=== PATIENT | male | born 1975 | race Caucasian/White ===

== ENCOUNTER 2017-04-28 21:49 | Emergency (ER) | payer SELFPAY ==
[~2017-04-28] VITALS: Ht 176.5 cm; Wt 109.2 kg
[2017-04-28 21:50] VITALS: TEMP 36.4; Ht 176.5 cm; Wt 109.2 kg
[2017-04-28] MEDS ORDERED: ONDANSETRON INJ 2 MG/ML 2 ML VIAL IV STA (22:03)
[2017-04-28] MEDS ORDERED: SODIUM CHLORIDE 0.9% 1000ML 1,000 ML IV STA ×2 (22:03)
[2017-04-28] MEDS ORDERED: MoRPHine SULFATE 4 MG/ML 1 ML CARP\\VIAL IV STA ×2 (22:03→23:22)
[2017-04-28] MEDS ORDERED: IBUP-103 PO (22:27)
[2017-04-28 22:53] VITALS: O2SAT 96
[2017-04-28 22:54] LABS: BASO % 0.4 %; BASO ABS # 0.04 K/uL (0-0.2); COMPLETE YES; EOS % 4.3 %; HEMATOCRIT 47.3 % (42-52); IG% 0.3 %; LYMPH % 32.9 %; LYMPH ABS # 3.55 K/uL (1.2-3.4); MEAN CELL VOLUME 89.8 fL (80-100); MEAN CORPUSCULAR HEMOGLOBIN 31.7 pg (25-34); MEAN CORPUSCULAR HGB CONC 35.3 g/dl (32-36); MEAN PLATELET VOLUME 10.2 fL (7.4-10.4); MONO % 6.7 %; NEUT % 55.4 %; PLATELET COUNT 217 K/uL (130-400); RED BLOOD COUNT 5.27 M/uL (4.7-6.1); WHITE BLOOD COUNT 10.78 K/uL (4.8-10.8)
[2017-04-28 23:10] LABS: URINE APPEARANCE CLEAR (CLEAR); URINE BILIRUBIN NEG (NEG); URINE COLOR YELLOW; URINE NITRITE NEG (NEG); UROBILINOGEN NEG (NEG); ZZUR CULT IF INDIC CLEAN CATCH NO
[2017-04-28 23:12] LABS: ALT/SGPT 35 U/L (12-78); BLOOD UREA NITROGEN 18 mg/dl (7-18); BUN/CREATININE RATIO 18.6 (10-20); CALCIUM 8.8 mg/dl (8.5-10.1); CARBON DIOXIDE 24 mmol/L (21-32); CHLORIDE 108 mmol/L (98-107); CREATININE 0.98 mg/dl (0.60-1.40); GLUCOSE 122 mg/dl (70-99); POTASSIUM 3.9 mmol/L (3.5-5.1); SODIUM 141 mmol/L (136-145)
[2017-04-28 23:15] LABS: ALKALINE PHOSPHATASE 108 U/L (45-117); AST/SGOT 19 U/L (15-37)
[2017-04-28 23:28] LABS: MANUAL MICROSCOPIC REQUIRED? NO; REVIEW REQ? NO
[2017-04-29] MEDS ORDERED: OPTIRAY 320 IV PRN (00:15)
[2017-04-29] MEDS ORDERED: OXYCODONE IR HOME PACK PO ONE (01:15)
[2017-04-29] MEDS ORDERED: ONDANSETRON HOME PACK 4MG OD TAB PO ONE (01:15)
[2017-04-29 01:35] VITALS: BP 139/90; PULSE 72; O2SAT 96
--- NOTE | 2017-04-29 01:50 | EMERGENCY ROOM VISIT NOTE ---
History First contact with patient: 21:55 Chief Complaint: ABDOMINAL PAIN Stated Complaint: RLQ PAIN Nursing Triage Summary: Pt states he was working outside this evening when he developed mid abdominal pain that comes in waves. History of Present Illness The patient is a 41 year old male who presents to the Emergency Room with complaints of right lower quadrant pain that comes and goes in severity for the past several hours. Pain currently 6 out of 10. Nothing makes it better or worse. It does not radiate. Patient denies chest pain, dyspnea, fever, chills , vomiting, diarrhea, back pain, testicular pain, penile pain, urinary symptoms. No history of similar symptoms in the past. No colonoscopy. No prior abdominal surgeries. Review of Systems See HPI for pertinent positives & negatives. A total of 10 systems reviewed and were otherwise negative. Past Medical/Surgical History None Family History No significant family history Social History Smoking Status: Current Every Day Smoker Alcohol Use: occasionally Drug Use: none Marital Status: in relationship Housing Status: lives with significant other Occupation Status: employed Current/Historical Medications Scheduled PRN Ibuprofen Tab (Advil), 400-600 MG PO Q6H PRN for Pain or Fever Allergies Coded Allergies: No Known Allergies (Unverified , 05/27/14) Physical Exam Vital Signs Date Time Temp Pulse Resp B/P (MAP) Pulse Ox O2 Delivery O2 Flow Rate FiO2 04/29/17 01:35 72 18 139/90 96 04/29/17 00:09 81 18 144/95 95 Room Air 04/28/17 22:56 85 04/28/17 22:53 96 Room Air 04/28/17 21:50 36.4 93 20 166/112 97 Room Air Pain Rating (0-10): 3.0 Physical Exam VITALS: Vitals are noted on the nurse's note and reviewed by myself. Vital signs stable. GENERAL: Pleasant male pacing who appears in pain, in no acute distress, nondiaphoretic, well-developed well-nourished. SKIN: The skin was without rashes, erythema, edema, or bruising. There is no tenting of the skin. Capillary reflex less than 2 seconds. HEAD: Normocephalic atraumatic. EARS: External auditory canals clear, tympanic membranes pearly littlejohn without erythema or effusion bilaterally. EYES: Pupils equal round and reactive to light and accommodation. Conjunctivae without injection, sclerae without icterus. Extraocular movements intact. NOSE: Patent, turbinates without inflammation or discharge. MOUTH: Mucous membranes moist. Pharynx without erythema or exudate. Uvula midline. Airway patent. Tongue does not deviate. NECK: Supple without nuchal rigidity. No lymphadenopathy. No thyromegaly. Cervical spine is nontender. No JVD. HEART: Regular rate and rhythm without murmurs gallops or rubs. LUNGS: Clear to auscultation bilaterally without wheezes, rales or rhonchi. No dullness to percussion. No retractions or accessory muscle use. ABDOMEN: Positive bowel sounds x 4. Normal tympanic percussion. Soft, tender to palpation right lower quadrant, no CVA tenderness, without masses or organomegaly. Lowery sign negative. No guarding or rebound tenderness. MUSCULOSKELETAL: No muscle atrophy, erythema, or edema noted. NEURO: Patient was alert and oriented to person place and time. Normal sensation to light and sharp touch. No focal neurological deficits. Medical Decision & Procedures Laboratory Results 04/28/17 22:35 Red Blood Count 5.27, Mean Corpuscular Volume 89.8, Mean Corpuscular Hemoglobin 31.7, Mean Corpuscular Hemoglobin Concent 35.3, Mean Platelet Volume 10.2, Neutrophils (%) (Auto) 55.4, Lymphocytes (%) (Auto) 32.9, Monocytes (%) (Auto) 6.7, Eosinophils (%) (Auto) 4.3, Basophils (%) (Auto) 0.4, Neutrophils # (Auto) 5.98, Lymphocytes # (Auto) 3.55, Monocytes # (Auto) 0.72, Eosinophils # (Auto) 0.46, Basophils # (Auto) 0.04 04/28/17 22:35 Test 04/28/17 22:30 04/28/17 22:35 Urine Color YELLOW Urine Appearance CLEAR (CLEAR) Urine pH 5.0 (4.5-7.5) Urine Specific [place] 1.030 (1.000-1.030) Urine Protein NEG (NEG) Urine Glucose (UA) NEG (NEG) Urine Ketones TRACE (NEG) Urine Occult Blood NEG (NEG) Urine Nitrite NEG (NEG) Urine Bilirubin NEG (NEG) Urine Urobilinogen NEG (NEG) Urine Leukocyte Esterase NEG (NEG) White Blood Count 10.78 K/uL (4.8-10.8) Red Blood Count 5.27 M/uL (4.7-6.1) Hemoglobin 16.7 g/dL (14.0-18.0) Hematocrit 47.3 % (42-52) Mean Corpuscular Volume 89.8 fL (80-100) Mean Corpuscular Hemoglobin 31.7 pg (25-34) Mean Corpuscular Hemoglobin Concent 35.3 g/dl (32-36) Platelet Count 217 K/uL (130-400) Mean Platelet Volume 10.2 fL (7.4-10.4) Neutrophils (%) (Auto) 55.4 % Lymphocytes (%) (Auto) 32.9 % Monocytes (%) (Auto) 6.7 % Eosinophils (%) (Auto) 4.3 % Basophils (%) (Auto) 0.4 % Neutrophils # (Auto) 5.98 K/uL (1.4-6.5) Lymphocytes # (Auto) 3.55 K/uL (1.2-3.4) Monocytes # (Auto) 0.72 K/uL (0.11-0.59) Eosinophils # (Auto) 0.46 K/uL (0-0.5) Basophils # (Auto) 0.04 K/uL (0-0.2) RDW Standard Deviation 43.0 fL (36.4-46.3) RDW Coefficient of Variation 13.1 % (11.5-14.5) Immature Granulocyte % (Auto) 0.3 % Immature Granulocyte # (Auto) 0.03 K/uL (0.00-0.02) Anion Gap 9.0 mmol/L (3-11) Est Creatinine Clear Calc Drug Dose 121.7 ml/min Estimated GFR () 110.5 Estimated GFR (Non- 95.4 BUN/Creatinine Ratio 18.6 (10-20) Calcium Level 8.8 mg/dl (8.5-10.1) Total Bilirubin 0.3 mg/dl (0.2-1) Direct Bilirubin < 0.1 mg/dl (0-0.2) Aspartate Amino Transf (AST/SGOT) 19 U/L (15-37) Alanine Aminotransferase (ALT/SGPT) 35 U/L (12-78) Alkaline Phosphatase 108 U/L (45-117) Total Protein 7.4 gm/dl (6.4-8.2) Albumin 3.9 gm/dl (3.4-5.0) Lipase 133 U/L (73-393) Medications Administered Medications (Trade) Dose Ordered Sig/Carmelo Route Start Time Stop Time Status Last Admin Dose Admin Sodium Chloride 1,000 ml @ 999 mls/hr Q1H1M STAT IV 04/28/17 22:03 04/28/17 23:03 DC 04/28/17 22:03 999 MLS/HR Sodium Chloride 1,000 ml @ 125 mls/hr Q8H STAT IV 04/28/17 22:03 04/29/17 06:02 04/28/17 22:03 125 MLS/HR Ondansetron HCl (Zofran Inj) 4 mg NOW STAT IV 04/28/17 22:03 04/28/17 22:07 DC 04/28/17 22:45 4 MG Morphine Sulfate (MoRPHine SULFATE INJ) 4 mg NOW STAT IV 04/28/17 22:03 04/28/17 22:07 DC 04/28/17 22:45 4 MG Morphine Sulfate (MoRPHine SULFATE INJ) 4 mg NOW STAT IV 04/28/17 23:22 04/28/17 23:23 DC 04/28/17 23:41 4 MG Oxycodone HCl (Roxicodone Immediate Rel 5MG Home Pack) 1 homepack UD ONCE PO 04/29/17 01:15 04/29/17 01:16 DC 04/29/17 01:29 1 HOMEPACK Ondansetron HCl (ZOFRAN ODT 4MG Home Pack) 1 homepack UD ONCE PO 04/29/17 01:15 04/29/17 01:16 DC 04/29/17 01:29 1 HOMEPACK ED Course Prior records/ancillary studies reviewed. Triage Nursing notes reviewed. Additional history obtained from family The patient's history was concerning for abdominal pain. Differential diagnosis: Etiologies such as appendicitis, diverticulitis, PUD, biliary pathology, UTI, pancreatitis, obstruction, mesenteric ischemia, aortic pathology, infections, inflammatory bowel disease, renal colic, as well as others were entertained. Physical examination findings: As above. ER treatment provided: Morphine, Zofran, IV fluids On reassessment the patient felt better. Diagnostics interpreted by me: The labs revealed no leukocytosis. Negative urine Imaging studies: CT the abdomen and pelvis negative for acute findings per stat radiology Exam and history seem consistent with abdominal pain with unclear etiology. Patient could've passed a kidney stone or this could be early shingles or this could be a muscular pull. Patient was advised follow-up family care in a few days or here in the ER sooner for abdominal pain, fevers, vomiting, worsening signs or symptoms or as needed. Patient felt much better. He did not have acute and then on exam. He was tolerating fluids. By the evaluation outlined above emergent etiologies such as appendicitis, diverticulitis, PUD, biliary pathology, UTI, pancreatitis, obstruction, mesenteric ischemia, aortic pathology, infections, inflammatory bowel disease, renal colic, as well as others were deemed relatively unlikely. The pt informed about the findings as listed above. All questions were answered and pleased with the treatment. Return instructions were outlined and the patient was discharged in stable condition. Referral: The patient was referred back to their primary care physician for follow-up in 2 to 3 days for a recheck of the current condition. Case reviewed with my attending Medical Decision As above Impression Primary Impression: Abdominal pain, right lower quadrant Departure Information Dispostion Home / Self-Care Condition GOOD Forms Call Back Authorization, HOME CARE DOCUMENTATION FORM, Work Instructions, Return To Work: 1 day IMPORTANT VISIT INFORMATION Patient Instructions Abdominal Pain, My [facility] Additional Instructions DO NOT drive, drink alcohol, operate machinery, or perform dangerous activities today. You were given medications in the ER that can affect your ability to safely function or operate a vehicle. Oxycodone (OxyIR) 5mg: Take 1-2 pills every four hours for breakthrough pain. Avoid alcohol, operating machinery or dangerous equipment, working on ladders or roofs, DRIVING, or situations where being under the influence may be dangerous. It is recommended to use an [id number] stool softener such as Colace, 100mg twice daily while taking this medication to avoid constipation. Ibuprofen(Motrin, Advil) may be used for fever or pain. Use 600mg every six hours as needed. Take with food. Avoid using more than 2400mg in a 24 hour period. Do not use 2400mg per day for more than three consecutive days without physician direction. Prolonged inappropriate use can lead to stomach upset or ulcers. (AND/OR) Acetaminophen(Tylenol) may be used for fever or pain. Use 1000mg every six hours as needed. Avoid using more than 4000mg in a 24 hour period. Zofran 4mg: Take one every six hours as needed for nausea. Avoid alcohol, operating machinery or dangerous equipment, working on ladders or roofs, DRIVING , or situations where being under the influence may be dangerous. Rest and drink plenty of fluids as tolerated. Slow sips of water or sports drinks are recommended instead of large amounts all at once. Continue current medications. Once your stomach is settled start with a clear liquid diet (jello, soup broth, etc.) and then advance as tolerated. You should avoid full, heavy meals for about 24 hrs from the time your symptoms resolved. Return to the ER immediately for worsening or persistent abdominal pain, vomiting, fevers, chest pains, difficulty breathing, black or bloody stools, worsening of your condition, or as needed. Follow up with your primary physician in 24 hours for a recheck of your current condition. You may receive diarrhea from the contrast. Work Instructions Return To Work: 1 day
--- NOTE | 2017-04-29 08:16 | DIAGNOSTIC IMAGING REPORT ---
CT SCAN OF THE ABDOMEN AND PELVIS WITH IV CONTRAST CLINICAL HISTORY: Right lower quadrant abdominal pain. COMPARISON STUDY: No priors. TECHNIQUE: Following the IV administration of 92 cc of Optiray 320, CT scan of the abdomen and pelvis is performed from the lung bases to the proximal femora. Images are reviewed in the axial, sagittal, and coronal planes. IV contrast was administered without complication. Automated dose control exposure was utilized. CT DOSE: 1160.14 mGy.cm FINDINGS: Lung bases: The heart is normal in size and without pericardial effusion. The lung bases are clear noting dependent atelectasis. There is a small hiatal hernia. Liver: The contrast-enhanced liver is enlarged, measuring 19.1 cm in length. The liver demonstrates diffusely diminished attenuation consistent with hepatic steatosis. Fatty sparing is seen adjacent to gallbladder fossa. There is no intrahepatic biliary ductal dilatation. The hepatic veins and portal veins are patent. Gallbladder: Unremarkable. Spleen: Normal in size and attenuation. Pancreas: Unremarkable. Adrenal glands: Unremarkable. Kidneys: The contrast enhanced kidneys are normal in size and without hydronephrosis. The kidneys enhance symmetrically. Abdominal vasculature: The abdominal aorta is normal in course and caliber noting mild to moderate and age advanced atherosclerotic calcification. Bowel: There is no bowel obstruction. There is mild wall thickening and hyperemia is suggested in the distal/terminal ileum. This is best seen on image #281. No surrounding inflammatory changes identified. The remaining small bowel loops are normal. The appendix is well-visualized and normal. Peritoneum: There is no intraperitoneal free air or abdominal ascites. There is a fat-containing umbilical hernia. Lymphadenopathy: None. Pelvic viscera: The bladder, prostate, and seminal vesicles are normal as visualized.. Surgical clips are noted along the spermatic cord bilaterally. Skeletal structures: No lytic or blastic lesions are seen. IMPRESSION: 1. The appendix is well-visualized and normal. 2. Question mild wall thickening and hyperemia of the distal/terminal ileum. There is no surrounding inflammatory change in the remainder of the small bowel loops are normal. This is of indeterminate significance, and a mild infectious/inflammatory distal/terminal ileitis is not excluded clinical correlation will be required. 3. Hepatomegaly and hepatic steatosis. 4. There is mild to moderate and age advanced atherosclerotic calcification of the abdominal aorta. Electronically signed by: Kimani Smith M.D. 04/29/2017 8:14 AM Dictated Date/Time: 04/29/2017 8:08 AM
== END 2017-04-29 01:37 | disposition home or self-care (01) ==
LOC: C.EDB 21:50
DX: R10.31 Right lower quadrant pain (principal); F17.200 Nicotine dependence, unspecified, uncomplicated

== ENCOUNTER 2023-09-16 05:54 | Observation (INO) ==
--- NOTE | 2023-08-25 14:00 | PAT Medication Instructions ---
Medication Instructions Date of Service August 25, 2023 Home Medications Ibuprofen Tab (ADVIL) 400 - 600 mg PO Q6H PRN Pain or Fever atorvastatin 20 mg tablet 20 mg PO PM cyclobenzaprine 10 mg tablet 10 mg PO QPM garlic 1,000 mg PO QAM hydrochlorothiazide 25 mg tablet 25 mg PO QAM losartan 50 mg tablet 50 mg PO QAM meloxicam 15 mg tablet 15 mg PO QAM omega-3 fatty acids 1,000 mg PO QAM ASK your surgeon for instructions Ibuprofen Tab (ADVIL) 400 - 600 mg PO Q6H PRN Pain or Fever meloxicam 15 mg tablet 15 mg PO QAM STOP taking 2 weeks before surgery (or as soon as possible if surgery is within 2 weeks) garlic 1,000 mg PO QAM omega-3 fatty acids 1,000 mg PO QAM DO NOT take the morning of surgery hydrochlorothiazide 25 mg tablet 25 mg PO QAM losartan 50 mg tablet 50 mg PO QAM Take evening before surgery atorvastatin 20 mg tablet 20 mg PO PM cyclobenzaprine 10 mg tablet 10 mg PO QPM Other Notes If you have any questions please call us at [phone] or [phone] or [phone] or [phone]
--- NOTE | 2023-09-02 11:40 | Anesthesiology Consultation ---
Date of Service September 02, 2023 Assessment & Plan (1) Encounter for pre-operative examination: Chart Review Chart Review: Acceptable Risk for Surgery (pending PCP clearance ) and Patient seen in Pre Admission Testing - Awaiting PCP clearance 09/03/23 ([facility]) Per PAT appt on 09/02/23, no recent illness/disease exposures, illness related symptoms, or recent illness/disease positive tests. Will leave to surgeon's discretion if preop Covid testing needed Teaching & Discussion Pre-Anesthesia Teaching/Discussion Notes: Instructed NPO after midnight before surgery,except medications with 15 cc of water. Medication instructions provided according to the PAT guidelines. History Surgery Operation Date: 09/16/23 10:05 Proposed Procedures p C5-C6 Anterior Cervical Discectomy and Fusion, Spinal Cord Monitoring - Ad Will DO Height/Weight Height: 5 ft 9 in Weight: 106.9 kg Allergies Allergy/AdvReac Type Severity Reaction Status Date / Time No Known Allergies Allergy Unverified 08/22/23 13:20 Medications Home Medications Medication Instructions Recorded Confirmed Last Taken Ibuprofen Tab (ADVIL) 400 - 600 mg PO Q6H PRN Pain or 04/28/17 Unknown Fever #0 tabs atorvastatin 20 mg tablet 20 mg PO PM 08/22/23 08/22/23 Unknown cyclobenzaprine 10 mg tablet 10 mg PO QPM 08/22/23 08/22/23 Unknown garlic 1,000 mg PO QAM 08/22/23 08/22/23 Unknown hydrochlorothiazide 25 mg tablet 25 mg PO QAM 08/22/23 08/22/23 Unknown losartan 50 mg tablet 50 mg PO QAM 08/22/23 08/22/23 Unknown meloxicam 15 mg tablet 15 mg PO QAM 08/22/23 08/22/23 Unknown omega-3 fatty acids 1,000 mg PO QAM 08/22/23 08/22/23 Unknown Past Medical History Medical History HLD (hyperlipidemia) HTN (hypertension) Osteoarthritis Scoliosis Exercise / Class Metabolic Activity II 4-5 Yardwork/Stairs/Walk up hill (one flight of stairs - no chest pain or SOB ) Past Surgical History Surgical History History of oral surgery History of vasectomy History of wisdom tooth extraction Past Anesthesia History No Hx of Anesthesia Complications and No Family Hx of Anesthesia Complications History of PONV No Hx of PONV and No Hx of Motion Sickness STOP BANG Total 3 Social History Smoking Status: Current every day smoker Smoking cigarettes per day: trying to quit Do You Dip or Chew Tobacco: No Hx Alcohol Use: Yes Alcohol type: beer alcohol intake frequency: a few times a week Alcohol Intake Frequency Comment: 6 packs friday/fri night Hx Substance Use: No substance use type: does not use Review of Systems - Reflux- occ- diet dependent- mild- no medication if needed Patient denies chest pain, shortness of breath, dyspnea on exertion, cough, wheezing, palpitations. No hx of seizures, stroke, GA, apnea/snoring. No hx of blood clots or blood transfusions Physical Exam Vital Signs VITALS BP 129/87 P 72 TEMP 97.7 SP02 95% RESP 16 Constitutional no acute distress ENMT Mouth: no TMJ clicking Thyromental Distance: > or= 3.5 Finger Breadths (3.5) Mallampati Class: I (smaller airway ) Missing molars Neck + limited neck extension (mild) Respiratory normal respiratory effort; no respiratory distress Auscultation: lungs clear to auscultation bilaterally; no wheezes Cardiovascular Rate/Rhythm: regular rate and regular rhythm Heart Sounds: no murmur Vessels: no carotid bruit Musculoskeletal Spine: + pain with cervical ROM (minimal) Extremities: extremities normal to inspection Psychiatric Orientation: alert Lab Results Anesthesia Preop Results Results Anesthesia Widget: WBC 11.90 K/ul (4.8-10.8) H 09/02/23 Hgb 17.4 g/dl (14.0-18.0) 09/02/23 Hct 48.9 % (42.0-52.0) 09/02/23 Plt 215 K/uL (130-400) 09/02/23 Na 137 mmol/L (136-145) 09/02/23 K 4.4 mmol/L (3.5-5.1) 09/02/23 Cl 102 mmol/L (98-107) 09/02/23 CO2 28 mmol/L (21-32) 09/02/23 BUN 13 mg/dl (6-23) 09/02/23 Creat 0.92 mg/dl (0.6-1.4) 09/02/23 Glucose Level 116 mg/dl (70-99(Fasting)) H 09/02/23 PT 10.8 Seconds (9.0-12.0) 09/02/23 PTT 32.0 Seconds (21.0-31.0) H 09/02/23 INR 1.0 (0.9-1.1) 09/02/23 Urine Color Yellow 09/02/23 Urine Appearance Clear (Clear) 09/02/23 Urine pH 5.5 (4.5-7.5) 09/02/23 Urine Specific [place] 1.007 (1.000-1.030) 09/02/23 Urine Protein Negative (Negative) 09/02/23 Urine Glucose (UA) Negative (Negative) 09/02/23 Urine Ketones Negative (Negative) 09/02/23 Urine Blood Negative (Negative) 09/02/23 Urine Nitrite Negative (Negative) 09/02/23 Urine Bilirubin Negative (Negative) 09/02/23 Urine Urobilinogen Negative (Negative) 09/02/23 Urine Leukocyte Esterase Negative (Negative) 09/02/23 Blood Type A Positive 09/02/23 Antibody Screen NEGATIVE 09/02/23 Testing Electrocardiogram Date: 05/08/23 Findings: + NSR @ (64bpm) Normal EKG per cardio Chest X-Ray Date: 09/02/23 Findings: + NAD FINDINGS: PA and lateral chest radiographs are obtained. No prior studies are available for comparison at the time of dictation. The cardiomediastinal silhouette is unremarkable. The lungs and pleural spaces are clear. There is no pneumothorax. The bony thorax appears intact.
[2023-09-16] MEDS ORDERED: ceFAZolin 2000MG 2,000 MG/15 ML SYR IV SCH (06:00)
[2023-09-16] MEDS ORDERED: CeleBREX 200 MG CAP PO SCH (06:00)
[2023-09-16] MEDS ORDERED: GABAPENTIN 900 MG DOSE PO SCH (06:00)
[2023-09-16] MEDS ORDERED: LR 60ML/HR IV SCH (06:00)
[2023-09-16] MEDS ORDERED: ACETAMINOPHEN 500 MG TAB PO SCH (06:00)
[2023-09-16] MEDS ORDERED: LR 15ML/HR IV SCH (06:00)
[2023-09-16] MEDS ORDERED: ceFAZolin 330 MG/ML 1 GM VIAL ONE (07:04)
[2023-09-16] MEDS ORDERED: ROCURONIUM BROMIDE 10 MG/ML 5 ML VIAL IV ONE ×2 (07:12→08:34)
[2023-09-16] MEDS ORDERED: PROPOFOL IV EMULSION 10 MG/ML 20 ML VIAL IV ONE (07:12)
[2023-09-16] MEDS ORDERED: LIDOCAINE 2% 2 ML VIAL/AMP(20MG/ML) INFIL ONE (07:12)
[2023-09-16] MEDS ORDERED: ONDANSETRON INJ 2 MG/ML 2 ML VIAL ONE (07:12)
[2023-09-16] MEDS ORDERED: DEXAMETHASONE SOD INJ 4 MG/ML VIAL ONE (07:12)
[2023-09-16] MEDS ORDERED: MIDAZOLAM HCL 1 MG/ML 2ML VIAL ONE (07:13)
[2023-09-16] MEDS ORDERED: SUGAMMADEX SODIUM 200 MG/2 ML VIAL IV ONE (07:13)
[2023-09-16] MEDS ORDERED: fentaNYL citrate PF 100 MCG/2 ML VIAL ONE (07:13)
[2023-09-16] MEDS ORDERED: NALOXONE HCL 0.4 MG/1 ML VIAL/CARP IV PRN ×2 (07:15→11:07)
[2023-09-16] MEDS ORDERED: FLUMAZENIL 0.1 MG/1 ML 10 ML VIAL IV PRN (07:15)
[2023-09-16] MEDS ORDERED: ePHEDrine sulfate 50 MG/ML AMP IV PRN (07:15)
[2023-09-16] MEDS ORDERED: ATROPINE SULFATE 0.1 MG/ML 10ML SYR IV PRN (07:15)
[2023-09-16] MEDS ORDERED: ONDANSETRON INJ 2 MG/ML 2 ML VIAL IV PRN ×2 (07:15→11:07)
[2023-09-16] MEDS ORDERED: PROMETHAZINE HCL 12.5 MG in SODIUM CHLORIDE 0.9% 50 ML IV PRN ×2 (07:15→11:07)
[2023-09-16] MEDS ORDERED: HYDROmorphone INJ 1 MG/ML SYRINGE IV PRN ×2 (07:15→11:07)
[2023-09-16] MEDS ORDERED: LABETALOL HCL IV 5 MG/ML 20ML IV PRN (07:15)
--- NOTE | 2023-09-16 07:44 | History & Physical Bridge Note ---
Date of Service September 16, 2023 History & Physical Bridge Note I have examined the patient, reviewed the History & Physical and in the interval since the performance of the History & Physical I have noted the following changes of clinical significance: no changes noted
--- NOTE | 2023-09-16 07:45 | History & Physical Report ---
Date of Service September 16, 2023 Assessment & Plan (1) Cervical stenosis of spinal canal: Plan: C5-C6 anterior cervical discectomy and fusion History of Present Illness Chief Complaint: Neck and arm pain Primary Care Provider: Meenu Newton PA-C This is a 48-year-old male presents with chronic persistent neck and arm pain after failing course of nonoperative care is here for surgical invention. Allergies Allergy/AdvReac Type Severity Reaction Status Date / Time No Known Allergies Allergy Unverified 08/22/23 13:20 Home Medications Medication Instructions Recorded Confirmed Type Ibuprofen Tab (ADVIL) 400 - 600 mg PO Q6H PRN Pain or 04/28/17 09/16/23 History Fever #0 tabs atorvastatin 20 mg tablet 20 mg PO PM 08/22/23 09/16/23 History cyclobenzaprine 10 mg tablet 10 mg PO QPM 08/22/23 09/16/23 History garlic 1,000 mg PO QAM 08/22/23 09/16/23 History hydrochlorothiazide 25 mg tablet 25 mg PO QAM 08/22/23 09/16/23 History losartan 50 mg tablet 50 mg PO QAM 08/22/23 09/16/23 History meloxicam 15 mg tablet 15 mg PO QAM 08/22/23 09/16/23 History omega-3 fatty acids 1,000 mg PO QAM 08/22/23 09/16/23 History varenicline 0.5 mg tablet 0.5 mg PO DIRECTED 09/03/23 09/16/23 History empagliflozin 10 mg tablet 10 mg PO QAM 09/16/23 09/16/23 History (Jardiance) Past Med/Surg History Medical History (Updated 09/16/23 @ 07:45 by Ad Will DO) Diabetes Recently diagnosed by PCP 09/03/23 Scoliosis Osteoarthritis HLD (hyperlipidemia) HTN (hypertension) Surgical History History of oral surgery History of wisdom tooth extraction History of vasectomy Social History Smoking Status: Current every day smoker Tobacco Type: Cigarettes Cigarettes Per Day: trying to quit; Second Hand Exposure: No; Do You Dip or Chew Tobacco: No; Tobacco Cessation Education Requested by Patient: No Hx Alcohol Use: Yes Alcohol type: beer Hx Substance Use: No Preferred Language: Vietnamese Communication Ability: Effective Conservation Scientist Required: No Beliefs That Will Affect Care: None Current Living Situation: Family Feels Safe at Home: Yes Safety Concerns: Feels Safe At This Time Assistive Devices: Glasses Physical Exam Physical Exam: Patient is alert and oriented Heart regular rhythm Lungs clear Results & Data Results & Data Vital Signs (Past 12 Hours) Vital Signs Temp Pulse Resp BP Pulse Ox O2 Del Method 09/16/23 06:14 36.5 C 79 18 131/82 97 Room Air
--- NOTE | 2023-09-16 09:04 | Operative Report ---
Post Operative Report Pre & Post Diagnosis Operation Date: 09/16/23 07:45 Pre-Op Diagnosis: Cervical spinal stenosis with radiculopathy Post-Op Diagnosis: Same I identified the patient and participated in the time-out.: Yes Procedure Operation Date: 09/16/23 07:45 Actual Procedures #1 anterior cervical discectomy with bilateral foraminotomies C5-C6. #2 anterior cervical arthrodesis C5-C6. #3 placement spiral 8 mm cage with I factor C5-C6. #4 application of K2 M plate and screws C5-C6. Surgeon Ad Will, DO Medication Nurse Samira Ku Estimated Blood Loss 10 Findings See Below The patient is 5 foot 9 weighing over 103 kg with a BMI in excess of 33. Patient's body habitus did contribute to significant technical difficulty requiring her deeper retractors longer instruments in order to perform this procedure. This at least 50% increased operative time. Specimens None Indications This is a 48-year-old male who presents above-mentioned diagnosis of failed since course of nonoperative care is here for surgical invention. Description of Procedure Patient was met with identified informed consent obtained. Patient was then taken to the operative suite underwent patient placed in a supine position on the Víctor table with the head Severino gatica. All bony promises well-padded eyes inspected to ensure no external pressure placed upon the. This point the anterior cervical spine was prepped and draped in a sterile fashion. The assi stance of fluoroscopy identified the C5-C6 disc base and a transverse incision was placed along the right anterior aspect of the cervical spine overlying this region. Blunt dissection with assistance of bipolar electrocautery to form down to and exposing the anterior cervical spine C5-C6. Self-retaining retractors placed. Informed complete discectomy of C5-C6 out to the uncovertebral joints bilaterally. Montague distracting pins utilized to assist in visualization. Moved all posterior annular fibers longitudinal ligament bilateral foraminotomies performed. Endplates were then burred to subcortical bleeding bone and an 8 mm Spira cage with I factor tapped in position. Distracting apparatus was removed and a K2 M plate and screws applied with the assistance of fluoroscopy. The incision was then copiously irrigated explored to ensure no damage to surrounding structures or remaining bleeding. 10 round CYRUS drain inserted. The incision was then closed with 2 Vicryl in the fascia and 4 Monocryl for final closure. Steri-Strips sterile dressing placed. Patient waken taken to PACU in stable condition. Please note spinal cord monitoring was utilized at the procedure no changes noted. Lastly Samira Ku was present at the entire surgery and all the patient positioning complex portion of the surgery and final skin closure. I attest to the content of the Intraoperative Record and any orders documented therein. Any exceptions are noted below.
--- NOTE | 2023-09-16 09:21 | Fluoroscopy Report ---
FL cervical 2-3V CLINICAL HISTORY: C5-6 DISCECTOMY AND FUSION COMPARISON STUDY: Radiograph 07/20/2023 FLUOROSCOPY TIME: 18.3 seconds FLUOROSCOPY IMAGES: 3 EXPOSURE DOSE: 4.60 mGy FINDINGS: Anterior plate and screw fusion hardware secondary to C5-C6. Endotracheal tube and surgical drainage catheter is noted. Limited exam secondary to overlying soft tissue. No unexpected opaque fo reign bodies identified. No definitive or significant foraminal completion of the surgery. IMPRESSION: Fluoroscopic assistance as above. ACT 112: Negative or not required by law. Electronically signed by: Taj Freitas M.D. 09/16/2023 9:19 AM
[2023-09-16] MEDS: fentaNYL citrate PF 100 MCG/2 ML VIAL IV PRN ×2 (09:26→09:36)
--- NOTE | 2023-09-16 10:41 | Anesthesiology Progress Note ---
Date of Service September 16, 2023 Anesthesia Post Procedure Vital Signs Vital Signs: Temp Pulse Pulse Resp BP BP Pulse Ox 09/16/23 10:25 36.4 C L 77 18 152/96 H 92 09/16/23 10:15 74 16 150/99 H 95 09/16/23 10:05 71 17 147/97 H 94 09/16/23 09:55 74 16 153/97 H 94 09/16/23 09:45 69 13 133/97 94 09/16/23 09:35 72 17 142/100 H 94 09/16/23 09:25 71 17 136/96 97 09/16/23 09:16 36.6 C 70 18 144/92 H 97 09/16/23 06:14 36.5 C 79 18 131/82 97 O2 Del Method O2 Flow Rate 09/16/23 10:25 Nasal Cannula 2 09/16/23 10:15 Nasal Cannula 2 09/16/23 10:05 Nasal Cannula 2 09/16/23 09:55 Nasal Cannula 2 09/16/23 09:45 Oxymask 4 09/16/23 09:35 Oxymask 4 09/16/23 09:25 Oxymask 9 09/16/23 09:16 Oxymask 9 09/16/23 06:14 Room Air Pain Intensity Upper Back: Pain Intensity: 4 Neck: Pain Intensity: 4 Transfer of Care Handoff Completed per policy Notes Mental Status: alert / awake / arousable Patient Amnestic to Procedure: Yes Nausea / Vomiting: adequately controlled Pain: adequately controlled Airway Patency, RR, SpO2: stable & adequate BP & HR: stable & adequate Hydration State: stable & adequate Anesthetic Complications: no major complications apparent
[2023-09-16] MEDS ORDERED: ALUMINUM/MAGNESIUM SUSP 30 ML UDC PO PRN (11:07)
[2023-09-16] MEDS ORDERED: LORazepam 0.5 MG TAB PO PRN (11:07)
[2023-09-16] MEDS ORDERED: MAGNESIUM HYDROXIDE SUSP 30 ML UDC PO PRN (11:07)
[2023-09-16] MEDS ORDERED: LORazepam 0.5 MG in SYRINGE 0.25 ML IV PRN (11:07)
[2023-09-16] MEDS ORDERED: FAMOTIDINE 20 MG TAB PO PRN (11:07)
[2023-09-16] MEDS ORDERED: HYDROmorphone INJ 0.5 MG/0.5 ML SYR IV PRN (11:07)
[2023-09-16] MEDS ORDERED: hydrOXYzine HCl 25 MG TAB PO PRN (11:07)
[2023-09-16] MEDS ORDERED: DO NOT ADMINISTER PNEUMOCOCCAL VACCINE PRN (11:07)
[2023-09-16] MEDS ORDERED: ACETAMINOPHEN 500 MG TAB PO PRN (11:07)
[2023-09-16] MEDS ORDERED: ONDANSETRON 4 MG OD TAB PO PRN (11:07)
[2023-09-16] MEDS ORDERED: PHARMACY GLYCEMIC MGMT CONSULT PRN (11:07)
[2023-09-16] MEDS ORDERED: traMADol HCL 50 MG TABLET PO PRN (11:07)
[2023-09-16] MEDS ORDERED: RACEPINEPHRINE 2.25% NEBU SOLN 0.5 ML VIAL INH PRN (11:07)
[2023-09-16] MEDS ORDERED: METOCLOPRAMIDE HCL INJ 5 MG/ML 2 ML VIAL IV PRN (11:07)
[2023-09-16] MEDS ORDERED: DO NOT ADMINISTER FLU VACCINE PRN (11:07)
[2023-09-16] MEDS ORDERED: ACETAMINOPHEN 1,000 MG/100 ML VIAL IV PRN (11:07)
[2023-09-16] MEDS ORDERED: diphenhydrAMINE Capsule 25 MG CAP PO PRN (11:07)
[2023-09-16] MEDS ORDERED: bisacodyL 10 MG SUPP PR PRN (11:07)
[2023-09-16] MEDS ORDERED: SOD PHOSPHATE/SOD BIPHOSPHATE ENEMA 132 ML BTL PR PRN (11:07)
[2023-09-16] MEDS ORDERED: oxyCODONE HCL IR 5 MG TAB (IMMEDIATE RELEASE) PO PRN (11:07)
[2023-09-16] MEDS ORDERED: dexAMETHasone 8 MG in SYRINGE 0 ML IV PRN (11:07)
[2023-09-16] MEDS ORDERED: DEXTROSE 50% 50 ML SYRINGE IV PRN (11:30)
[2023-09-16] MEDS ORDERED: GLUCOSE 40% GEL 15 GM TUBE PO PRN (11:30)
[2023-09-16] MEDS ORDERED: CARBOHYDRATES FOR HYPOGLYCEMIA PO PRN (11:30)
[2023-09-16] MEDS ORDERED: GLUCAGON FOR INJ 1 MG VIAL IM PRN (11:30)
[2023-09-16] MEDS ORDERED: GLUCOSE 10 TAB/TUBE PO PRN (11:30)
[2023-09-16] MEDS: LACTATED RINGER'S 1,000 ML IV SCH ×2 (11:32→18:09)
[2023-09-16] MEDS: INSULIN ASPART PER UNIT CHARGE SC SCH ×3 (12:09→20:40)
--- NOTE | 2023-09-16 12:24 | Pharmacy Report ---
Pharmacy Glycemic Short Note 2 - Date of Service September 16, 2023 - Glycemic Short BSG Results (Last 24 hours): 09/16/23 09/16/23 09/16/23 06:14 09:18 11:35 POC Glucose 128 H 122 H 139 H OUTPATIENT ANTIDIABETIC REGIMEN: * Jardiance 10 mg daily (not yet started) * HbA1C ordered ASSESSMENT: * Mr Dunlap is a 48 y/o M with a PMH of newly diagnosed Type 2 DM who presents for spinal surgery. * Preop BSG was 128 and postop BSG was 139 mg/dL. Patient received dex 8 mg during surgery. * Since patient is relatively newly diagnosed, will trial NPH 20 units (0.2 units/kg) plus Novolog weight-based stress of 2/3. * Patient has ongoing dexamethasone orders so adjust accordingly. PLAN FOR INPATIENT GLYCEMIC CONTROL: * Hold outpatient oral diabetes medications * Basal insulin * NPH 20 units SQ x 1 with subsequent dosing determined by response * Bolus insulin * NovoLog per scale ACHS or Q6hrs while NPO * Goal Range: Low 110 mg/dL - High 140 mg/dL * Correction Factor: 25 mg/dL/unit * Nutritional / Prandial insulin per carb ratio of 1 unit per 6 grams CHO consumed
[2023-09-16] MEDS ORDERED: NovoLIN-N (NPH) PER UNIT CHARGE SQ ONE (12:30)
[2023-09-16] MEDS ORDERED: NICOTINE POLACRILEX 2 MG GUM MT PRN (14:04)
[2023-09-16] MEDS: ceFAZolin 2000MG 2,000 MG/15 ML SYR IV SCH ×2 (16:11→22:41)
[2023-09-16] MEDS ORDERED: DOCUSATE SODIUM/SENNA 50/8.6MG TAB PO SCH (21:00)
[2023-09-16] MEDS ORDERED: ATORVASTATIN 20 MG TAB PO SCH (21:00)
[2023-09-17] MEDS: LACTATED RINGER'S 1,000 ML IV SCH (01:16)
[2023-09-17] MEDS ORDERED: POLYETHYLENE (MIRALAX) 17 GM PACK PO SCH (06:00)
[2023-09-17 07:09] LABS: Basophils # (auto) 0.04 K/uL (0.00-0.20); Basophils % (auto) 0.3 %; Eosinophils % (auto) 0.7 %; Hematocrit (blood only) 42.7 % (42.0-52.0); Hemoglobin 15.5 g/dl (14.0-18.0); Immature Granulocytes # (auto) 0.06 K/uL (0.01-0.20); Immature Granulocytes % (auto) 0.4 %; Lymphocytes # (auto) 4.04 K/uL (1.20-3.40); Lymphocytes % (auto) 27.3 %; Mean Corpuscular Hemoglobin 31.6 pg (25.0-34.0); Mean Corpuscular Hgb Conc 36.3 g/dL (32.0-36.0); Mean Corpuscular Volume 87.1 fL (80.0-100.0); Mean Platelet Volume 10.9 fL (9.4-12.4); Monocytes # (auto) 0.98 K/uL (0.11-0.59); Monocytes % (auto) 6.6 %; Neutrophils # (auto) 9.58 K/uL (1.40-6.50); Neutrophils % (auto) 64.7 %; Platelet Count 201 K/uL (130-400); RDW Coefficient of Variation 12.6 % (11.5-14.5); RDW Standard Deviation 40.3 fL (36.4-46.3)
[2023-09-17 07:35] LABS: Estimated Average Glucose 146 mg/dl; Hemoglobin A1C 6.7 % (4.5-5.6)
[2023-09-17] MEDS: INSULIN ASPART PER UNIT CHARGE SC SCH (08:14)
--- NOTE | 2023-09-17 08:41 | Discharge Summary ---
Date of Service September 17, 2023 Admission HPI Per Admitting Provider This is a 48-year-old male presents with chronic persistent neck and arm pain after failing course of nonoperative care is here for surgical invention. Admission Exam (Per Admitting) Constitutional well nourished Eyes normal visual richards by confrontation ENMT external ear and nose normal, oropharynx normal Neck normal visual inspection Respiratory normal respiratory effort Cardiovascular Extremities: normal capillary refill Gastrointestinal (Abdomen) Inspection/Auscultation: abdomen normal to inspection Musculoskeletal Spine: + limited cervical ROM Extremities: extremities normal to inspection and strength 5/5 throughout Skin no rashes, warm and dry Neurologic normal touch/pain/proprioception and moves all extremities Psychiatric A+Ox3, euthymic affect Discharge Data Procedures Performed Operation Date: 09/16/23 07:45 Actual Procedures p C5-C6 Anterior Cervical Discectomy and Fusion with Spinal Cord Monitoring(Not Applicable) - Ad Will DO Hospital Course (1) Cervical stenosis of spinal canal: Eric is being discharged home on postoperative day 1 status post ACDF C5-6. He has had an uneventful hospital course. Upper extremity symptoms have resolved. He is tolerating a full diet. He is up and ambulatory to the [facility]. No bowel or bladder issues. CYRUS drain output last shift was 15 cc. Discharge Instructions ACTIVITY RECOMMENDATIONS: SELF CARE INSTRUCTIONS AFTER CERVICAL FUSIONS 1. No smoking. Smoking drastically decreases the chance of a solid fusion. 2. No bending, lifting more than 5 pounds, or twisting (roll like a log when turning in bed). 3. You may shower 3 days after surgery. Thoroughly dry wound. Do not soak in the tub. 4. Cervical collar: Must be worn at all times including sleeping. You may remove the brace only to bath, eat and if you are sitting in a recliner. 5. Please walk as much as you can for exercise. Gradually increase the distance that you walk as your endurance increases. SPECIAL CARE INSTRUCTIONS: VERY IMPORTANT TO READ AND REVIEW A. Do not take any anti-inflammatory medications (i.e. Indocin, Advil, Aspirin, Naprosyn, Aleve, Motrin, etc.) as these may inhibit the chance of a solid fusion. Tylenol is okay to take. B. Your surgical incision has been closed with a cosmetic suture under the skin that will dissolve in about 6 weeks. In 14 days, you can use a pair of clean scissors and cut the suture that is left outside of the skin at the ends of your incision. C. Complications are uncommon, but please contact us if you have any signs or symptoms of: 1. wound infection (fever higher than 102.5 degrees F, redness, separation of wound, drainage, or increasing pain from the incision) 2. blood clots in legs (pain, swelling, redness and warmth in legs) 3. urinary tract infection (fever higher than 102.5 degrees, burning upon urination or increased frequency of urination) 4. nerve problems (inability to walk on your toes or heels, numbness, loss of bowel or bladder control) 5. any other symptoms that concern you. D. Please call the office at if you have any concerns or questions about your operation or recovery. MANAGING PAIN AFTER SPINAL SURGERY 1. Narcotic medication is intended for short-term use and will be provided for surgical pain. Surgical pain usually lasts for a period of 4-6 weeks. Narcotic medication includes Percocet, Vicodin, Darvocet, Tylenol #3 or Lortab. 2. Longer-term pain is more appropriately treated with non-narcotic medication such as Tylenol ES. 3. Muscle spasm is not appropriately treated with narcotics. Muscle relaxers such as Soma, Flexeril or Skelaxin can be used along with Tylenol ES. 4. Remember that we all live with some "aches and pains". This is not unusual or uncommon after an injury or as we get older. 5. We will provide appropriate medication within the normal guidelines of their prescribed use. We will also be very cautious and aware of potential abuse and extended duration of patients' medication needs. 6. Please allow 2-3 days to process refills. Prescriptions will not be mailed but must be picked up at the office. FOLLOW UP VISIT: Keep your scheduled follow-up appointment. Any questions, please call the office at .
[2023-09-17 08:56] LABS: BUN Creatinine Ratio 14.7 (10-20); Calcium 9.3 mg/dl (8.6-10.3); Creatinine Clr Calc Pharmacy 142.9 ml/min; Est GFR (African American) 125.7 ml/min; Est GFR (Non-African American) 108.5 ml/min; Potassium 3.9 mmol/L (3.5-5.1)
[2023-09-17] MEDS ORDERED: hydroCHLOROthiazide 25 MG TAB PO SCH (09:00)
[2023-09-17] MEDS ORDERED: EMPAGLIFLOZIN 10 MG TAB PO SCH (09:00)
[2023-09-17] MEDS ORDERED: LOSARTAN POTASSIUM 50 MG TAB PO SCH (09:00)
[2023-09-17] MEDS ORDERED: dexAMETHasone 6 MG in SYRINGE 0 ML IV SCH (09:00)
[2023-09-17] MEDS ORDERED: NovoLIN-N (NPH) PER UNIT CHARGE SQ ONE (09:00)
--- OUTSIDE RECORDS SUMMARY | 2023-09-18 12:36 | External Medical Summary | Summary of Care ---
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 Name Role Phone Unavailable Primary Care Provider Unavailabl e Reason for Visit * Reason Comments Outpatient Testing Encounter Details Date Type Department Care Team ([facility] st Contact Info) Description 09/03/2023 9:30 AM EDT Laboratory Laboratory [address] [place] [phone] [facility] [address] [place] [id number] Elevated glucose Allergies No known active allergiesdocumented as of this encounter (statuses as of 09/03/2023) Medications Medication Sig Dispensed Refills Start Date End Date Status Atorvastatin Calcium 20 MG Oral Tablet (Lipitor)Indication s:Hyperlipidemia with target LDL less than 100 Take 1 Tablet by mouth in the morning. 30 Tablet 5 05/09/2023 Active Losartan Potassium 50 MG Oral Tablet (Cozaar)Indications :HTN, goal below 130/80 Take 1 Tablet by mouth in the morning. 90 Tablet 3 06/30/2023 Active hydroCHLOROthiazide 25 MG Oral Tablet (Hydrodiuril)Indica tions:HTN, goal below 130/80 Take 1 Tablet by mouth in the morning. 90 Tablet 3 06/30/2023 Active Meloxicam 15 MG Oral Tablet Take 1 Tablet by mouth in the morning. for pain.. 30 Tablet 5 08/04/2023 Active Clindamycin Phosphate 1 % External GelIndications:Furu nculosis,Folliculit is,Hidradenitis suppurativa Apply 2x daily to new and resolving acne like spots on trunk/arms/legs/kaycee k, and 1x daily to areas not currently active (see printed checkout sheet) 60 g 3 08/13/2023 Active Nicotine 14 MG/24HR Transdermal Patch 24 Hour (Nicoderm CQ)Indications:Toba accounting systems manager abuse disorder Place 1 Patch over 24 hours topically on the skin in the morning. On upper body/outer arm, change once a day for two weeks.. 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 11/04/2008 ADVANCE DIRECTIVE INFORMATION 10/15/2008 Overview: Yes, Patient instructed to provide copy of advance directive for provider to review and to be scanned into Electronic Medical Record History of tobacco use 08/26/2008 documented as of this encounter (statuses as of 09/03/2023) Immunizations Name Administration Dates Next Due TDAP (age 10 and older)(Boostrix) 05/27/2014 documented as of this encounter Social History Tobacco Use Types Packs/Day Years Used Date Smoking Tobacco: Every Day Cigarettes 0.5 32 Smokeless Tobacco: Never Comments:Was smoking 1.5 per day 12 years now 1/2 PPD 05/08/23 Alcohol Use Standard Drinks/Week Comments Yes 0 (1 standard drink = 0.6 oz pur e alcohol) weekends PHQ-2 Answer Date Recorded PHQ Adult Total Score 0 05/08/2023 Hunger Vital Sign Answer Date Recorded Within the past 12 months, y ou worried that your food would run out before you got the money to buy more. Sometimes true Within the past 12 months, t he food you bought just didn't last and you didn't have money to get more. Patient refused Sex and Gender Information Value Date Recorded Sex Assigned at Male 08/12/2023 10:31 AM EDT Gender Identity Male 08/12/2023 10:31 AM EDT Sexual Orientation Straight 08/12/2023 10 :31 AM EDT Job Start Date Occupation Industry Not on file Not on file Not on file documented as of this encounter Plan of Treatment Upcoming Encounters Date Type Department Care Team (Late st Contact Info) Description 10/13/2023 7:40 AM EST Office Visit Dermatology [address] [place] [id number] Rupa Nieto PA-C [address] [place] [address] [place] [phone] 03/03/2024 8:20 AM EDT Office Visit Family Medicine [address] [place] [phone] Kizzy Bridgse MD [address] [place] [address] [place] [phone] Pending Results Name Type Priority Associated Diagnoses Date /Time HEMOGLOBIN A1C Lab Routine Elevated glucose 09/03/2023 9:28 AM EDT Health Maintenance Due Date Last Done Comments Hepatitis B (1 of 3 - 3-dose series) 1975 COVID-19 Vaccine (#1) 1975 Pneumococcal Vaccine: Pediatrics (0 to 5 Years) and At-Risk Patients (6 to 64 Years) (1 - PCV) 1981 Cologuard 2020 Colonoscopy 2020 Colorectal Cancer Screening 2020 Fecal Occult Blood Test 2020 Sigmoidoscopy 2020 Influenza Vaccine (FLU shot) (#1) 2023 Depression Screening 05/08/2024 05/08/2023 DTaP,Tdap,and Td Vaccines (2 - Td or Tdap) 05/27/2024 05/27/2014 GFR 07/14/2024 07/14/2023, 05/04, 05/08/2023, Additional history exists Albumin/Creatinine Ratio 05/08/2026 05/08/2023 Diabetes Screening 07/14/2026 07/14/2023, 0 05/30/2023, 05/08/2023, Additional history exists Lipid Panel 05/08/2028 05/08/2023, 06/03/2017 GARDASIL-HPV IMMUNIZATION SERIES Aged Out No longer eligible based on patient's age to complete this topic MENINGOCOCCAL (MENACTRA/MENVEO) Aged Out No longer eligible based on patient's age to complete this topic documented as of this encounter Medical Devices Not on filedocumented as of this encounter Visit Diagnoses Diagnosis Elevated glucose Other abnormal glucose documented in this encounter
--- OUTSIDE RECORDS SUMMARY | 2023-09-18 12:36 | External Medical Summary | Summary of Care ---
Author Name Unknown Organization [facility] Address [address] [place] [address] Phone [phone] Care Team Providers Care Inflatable Buildings Laminator Name Role Phone Unavailable Primary Care Provider Unavailabl e Reason for Visit * Reason Comments Pre-op Clearance Encounter Details Date Type Department Care Team (Latest Contact Info) Description 09/03/2023 9:00 AM EDT Office Visit Family Medicine [address] [phone] Rinku Pandey MD [address] [place] [address] [place] Danielson [phone] Cervical radiculopathy at C5*; Tobacco abuse disorder; HTN, goal below 130/80; Hyperlipidemia LDL goal <100; Hyperglycemia Allergies No known active allergiesdocumented as of [...] MG/24HR Transdermal Patch 24 Hour (Nicoderm CQ)Indications:[employer]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 Place 1 Patch over 24 [...] in package 53 Each 0 09/03/2023 Active Hospital, Clinic, or Other Facility Administered Medication Ordered Dose Route Frequency Start Date End Date Status albuterol sulfate (PROVENTIL) (2.5 MG/3ML) 0.083% inhalation solution 2.5 mgIndications:Hist ory of tobacco use,Cough,SOB (shortness of breath) 2.5 mg NEBULIZER Q4H PRN 08/18/2018 09/03/2023 Discontinued documented as of this encounter (statuses as [...] Day Cigarettes 0.5 32 Smokeless Tobacco: Never Tobacco Cessation:Ready to Q uit: Not Asked; Counseling Given: Not Answered Comments:Was smoking 1.5 per day 12 years now / PPD 05/08/23 Alcohol Use Standard Drinks/Week Comments [...] on file documented as of this encounter Last Filed Vital Signs Vital Sign Reading Time Taken Comments Blood Pressure 134/84 09/03/2023 9:02 AM EDT Pulse 94 09/03/2023 9:02 AM EDT Temperature 36.2 C (97.1 F) 09/03/2023 9:02 AM ED T Respiratory Rate 16 09/03/2023 9:02 AM EDT Oxygen Saturation 94% 09/03/2023 9:02 AM EDT Inhaled Oxygen Concentration - - Weight 107.2 kg (236 lb 4 oz) 09/03/2023 9:02 AM EDT Height 175.3 cm (5' 9") 09/03/2023 9:02 AM EDT Body Mass Index 34.89 09/03/2023 9:02 AM EDT documented in this encounter Progress Notes * Rinku Pandey MD - 09/03/2023 9:00 AM EDT Shahram is being seen at the request of Dr Will for C5-6 surgery.He has had neck pain for a whileand pain shooting down left arm to his fingers. chiropractor did some kind of muscle stim to help with the pain temporarily. Also he is trying again to quit smoking. 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 He started the patches, would like more help. Best option there is Chantix which would not interfere with his surgery. No complaints of headache, trouble with vision or hearing. Eating well, with no bowel or bladder complaints. Denies nausea, vomiting, or diarrhea. Denies fevers, chills or sweats. Denies chest pain or palpitations. Denies shortness of breath, PND, or orthopnea. No skin rashes or breakdown. No changes in mentation. No syncope or falls. Labs in July showed a glucose of 173. He will get an hgba1c today to see if that is real. He had labs at [facility] as we.. All others negative other than those noted in HPI. Health Maintenance addressed. Refuses Past Medical History: Diagnosis Date Displacement of lumbar intervertebral disc without myelopathy HTN, goal below 130/80 Hyperlipidemia LDL goal <100 Varicella without complication as a child Past Surgical History: Procedure Laterality Date DENTAL SURGERY PROCEDURE NEC VASECTOMY Review of patient's allergies indicates: No Known Allergies Social History Socioeconomic History Marital status: Spouse name: Not on file Number of children: 2 Years of education: Not on file Highest education level: Not on file Occupational History Not on file Tobacco Use Smoking status: Every Day Packs/day: 0.50 Years: 32.00 Additional pack years: 0.00 Total pack years: 16.00 Types: Cigarettes Smokeless tobacco: Never Tobacco comments: Was smoking 1.5 per day 12 years now /2 PPD 05/08/23 Vaping Use Vaping Use: Never used Substance and Sexual Activity Alcohol use: Yes Comment: weekends Drug use: No Sexual activity: Not on file Other Topics Concern Service No Blood Transfusions No Caffeine Concern Yes Comment: coffee 3-4 cups daily; Occupational Exposure No Hobby Hazards No Sleep Concern No Stress Concern No Weight Concern No Special Diet No Back Care Yes Exercise Yes Bike Helmet No Seat Belt Yes Self-Exams No Social History Narrative Not on file Social Determinants of Health Financial Resource Strain: Not on file Food Insecurity: Food Insecurity Present (08/20/2023) Hunger Vital Sign Worried About Running Out of Food in the Last Year: Sometimes true Ran Out of Food in the Last Year: Patient refused Transportation Needs: Not on file Physical Activity: Not on file Stress: Not on file Social Connections: Not on file Intimate Partner Violence: Not on file Housing Stability: Not on file Current Outpatient Medications Medication Sig Dispense Refill Atorvastatin Calcium 20 MG Oral Tablet (Lipitor) Take 1 Tablet by mouth in the morning. 30 Tablet 5 Losartan Potassium 50 MG Oral Tablet (Cozaar) Take 1 Tablet by mouth in the morning. 90 Tablet 3 hydroCHLOROthiazide 25 MG Oral Tablet (Hydrodiuril) Take 1 Tablet by mouth in the morning. 90 Tablet 3 Meloxicam 15 MG Oral Tablet Take 1 Tablet by mouth in the morning. for pain.. 30 Tablet 5 Clindamycin Phosphate 1 % External Gel Apply 2x daily to new and resolving acne like spots on trunk/arms/legs/back, and 1x daily to areas not currently active (see printed checkout sheet) 60 g 3 Nicotine 14 MG/24HR Transdermal Patch 24 Hour (Nicoderm CQ) Place 1 Patch over 24 hours topically on the skin in the morning. On upper body/outer arm, change once a day for two weeks.. 28 Patch 2 No current facility-administered medications for this visit. Results for orders placed or performed in visit on 07/14/23 BASIC METABOLIC PANEL Result Value Ref Range BUN 18 6 - 20 mg/dL Creatinine 0.9 0.6 - 1.2 mg/dL Estimated Glomerular Filtration Rate >90 >=60 mL/min Sodium 138 135 - 146 mmol/L Potassium 3.8 3.5 - 5.1 mmol/L Chloride 102 98 - 107 mmol/L CO2 24 22 - 32 mmol/L Anion Gap 12 7 - 15 mmol/L Glucose 173 (H) 70 - 120 mg/dL Calcium 9.5 8.4 - 10.2 mg/dL O: Blood pressure 134/84, pulse 94, temperature 36.2 C (97.1 F), temperature source Tympanic, resp. rate 16, height 1.753 m (5' 9"), weight 107.2 kg (236 lb 4 oz), SpO2 94%. General appearance: well developed, well nourished and in no acute distress. PERRLA, EOMI. No scleral icterus. No facial assymmetry. TM's and canals normal. There is a normal gag reflex. Pt has normal teeth and no pharynge al inflammation. The palate has no lesions and the uvula is normal. Neck is supple without adenopathy or thyromegaly. Chest is symmetrical and moves normally. The lungs are clear without wheezes, rales, rhonchi or rubs, and the heart is regular without murmurs or gallops, or ectopy. PMI not displaced. A: Cervical radiculopathy at C5 (Primary) Tobacco abuse disorder - Varenicline Tartrate (Starter) 0.5 MG X 11 & 1 MG X 42 Tablet Therapy Pack; Use as directed in package HTN, goal below 130/80 Hyperlipidemia LDL goal <100 Hyperglycemia Continue other meds as before. He is cleared medically for the proposed surgery on 09/16. Follow Up: Return in about 6 months (around 03/03/2024) for Clinic Visit. | For: Clinic Visit documented in this encounter Nursing Notes * Rupali Rivera LPN - 09/03/2023 9:43 AM EDT Preop office visit note faxed to Dr. Will's office. * Rupali Rivera LPN - 09/03/2023 8:58 AM EDT Pre op for neck c5- and c6 by Dr. Will on 09/16/23 Nicotine patch doesn't work well for him. Already had blood work done at [facility] yesterday. He was told EKG is good for a year. Had one in May. documented in this encounter Plan of Treatment Upcoming Encounters Date Type Department Care Team (Late st Contact Info) Description 10/13/2023 7:40 AM EST Office Visit Dermatology [address] [place] [phone] Rupa Nieto PA-C [address] [place] [address] [place] [phone] 03/03/2024 8:20 AM EDT Office Visit Family Medicine [address] [place] [phone] Kizzy Bridges MD [address] [place] [address] [place] [phone] Health Maintenance Due Date Last Done Comments [...] as of this encounter Visit Diagnoses Diagnosis Cervical radiculopathy at C5- Primary Brachial neuritis or radiculitis nos Tobacco abuse disorder Tobacco use disorder HTN, goal below 130/80 Unspecified essential hypertension Hyperlipidemia LDL goal <100 Other and unspecified hyperlipidemia Hyperglycemia Other abnormal glucose documented in this encounter
--- OUTSIDE RECORDS SUMMARY | 2023-09-18 12:36 | External Medical Summary ---
Author Name Unknown Address Unknown Organization [id number]:[facility] [place] [address] [place] [address] Laboratory Report Ordering Provider Test Date Status ODALYS BRITO 09/03/2023 09:28:44 Final Observation Date Value Abnormality Reference (Units ) Status HbA1C 09/03/2023 09:28:44 6.9 Above high normal 4. 0-5.6 (%) Final The use of HbA1c to monitor glycemic status is based on normal hemoglobin and HbA composition. This test should not be used in patients with abnormal hemoglobin that affects the half life of the red blood cell or the in vivo glycation rates. Glucose, estimated average 09/03/2023 09:28:44 151 Above high normal <126 (mg/dL) Nhan kenyon Performing Location [facility] [place] [address] [place] [address]
--- OUTSIDE RECORDS SUMMARY | 2023-09-18 12:36 | External Medical Summary | Summary of Care ---
Author Name Unknown Organization [facility] Address [address] [place] [address] Phone [phone] Care Team Providers Care Dean Of Girls Name Role Phone Unavailable Primary Care Provider Unavailabl e Reason for Visit * Reason Onset Date Comments Letter Requests 08/13/2023 Encounter Details Date Type Department Care Team Description 08/13/2023 Telephone Family Medicine [address] [phone] Parris Munroe, PA-Charly [address] [place] [phone] Letter Requests Allergies No known active allergiesdocumented as of this encounter (statuses as of 08/18/2023) Medications Medication Sig Dispensed Refills Start Date End Date Status Atorvastatin Calcium 20 MG Oral Tablet (Lipitor)Indications :Hyperlipidemia with target LDL less than 100 Take 1 Tablet by mouth in the morning. 30 Tablet 5 05/09/2023 Active Losartan Potassium 50 MG Oral Tablet (Cozaar)Indications: HTN, goal below 130/80 Take 1 Tablet by mouth in the morning. 90 Tablet 3 06/30/2023 Active hydroCHLOROthiazide 25 MG Oral Tablet (Hydrodiuril)Indicat ions:HTN, goal below 130/80 Take 1 Tablet by mouth in the morning. 90 Tablet 3 06/30/2023 Active Meloxicam 15 MG Oral Tablet Take 1 Tablet by mouth in the morning. for pain.. 30 Tablet 5 08/04/2023 Active Clindamycin Phosphate 1 % External GelIndications:Furun culosis,Folliculitis ,Hidradenitis suppurativa Apply 2x daily to new and resolving acne like spots on trunk/arms/legs/ba ck, and 1x daily to areas not currently active (see printed checkout sheet) 60 g 3 08/13/2023 Active Hospital, Clinic, or Other Facility Administered Medication Ordered Dose Route Frequency Start Date End Date Status albuterol sulfate (PROVENTIL) (2.5 MG/3ML) 0.083% inhalation solution 2.5 mgIndications:History of tobacco use,Cough,SOB (shortness of breath) 2.5 mg NEBULIZER Q4H PRN 08/18/2018 Act yinka documented as of this encounter (statuses as of 08/18/2023) Active Problems Problem Noted Date HTN, goal below 130/80 06/02/2023 Displacement of lumbar intervertebral di sc without myelopathy 11/04/2008 ADVANCE DIRECTIVE INFORMATION 10/15/2008 Overview: Yes, Patient instructed to provide copy of advance directive for provider to review and to be scanned into Electronic Medical Record History of tobacco use 08/26/2008 documented as of this encounter (statuses as of 08/18/2023) Social History Tobacco Use Types Packs/Day Years Used Date Smoking Tobacco: Every Day Cigarettes 0.5 32 Smokeless Tobacco: Never Comments:Was smoking 1.5 per day 12 years now 1/2 PPD 05/08/23 Alcohol Use Standard Drinks/Week Comments Yes 0 (1 standard drink = 0.6 oz pur e alcohol) weekends Sex Assigned at Date Recorded Male 08/12/2023 10:31 AM EDT Job Start Date Occupation Industry Not on file Not on file Not on file documented as of this encounter Miscellaneous Notes * Telephone Encounter - Rupali Rivera LPN - 08/18/2023 11:45 AM EDT Pt aware. He already got it. * Telephone Encounter - Lauren Rasmussen LPN - 08/18/2023 11:31 AM EDT It looks like from another encounter pt is scheduled to see [facility]. Pt saw Parris for this, is anyonewilling to write this note? * Telephone Encounter - CAMILO Diamond - 08/13/2023 2:11 PM EDT Pt calling stating he does not see the airport operations specialist on Aug 20. Pt states he needs a letter stating he cannot return to work until his appointment with the back specialist. Pt asking to coil machine supervisor the note. Please call pt when ready at [phone]. documented in this encounter Plan of Treatment Upcoming Encounters Date Type Specialty Care Team Description 10/13/2023 Office Visit Dermatology Rupa Nieto PA-C [address] [place] [address] [place] [phone] Health Maintenance Due Date Last Done Comments Hepatitis B (1 of 3 - 3-dose series) 1975 COVID-19 Vaccine (#1) 1975 Pneumococcal Vaccine: Pediatrics (0 to 5 Years) and At-Risk Patients (6 to 64 Years) (1 - PCV) 1981 DTaP,Tdap,and Td Vaccines (1 - Tdap) 1994 Cologuard 2020 Colonoscopy 2020 Colorectal Cancer Screening 2020 Fecal Occult Blood Test 2020 Sigmoidoscopy 2020 Influenza Vaccine (FLU shot) (#1) 2023 Depression Screening 05/08/2024 05/08/2023 GFR 07/14/2024 07/14/2023, 0706/2023, 05/08/2023, Additional history exists Albumin/Creatinine Ratio 05/08/2026 [...]
--- OUTSIDE RECORDS SUMMARY | 2023-09-18 12:36 | External Medical Summary | Summary of Care ---
Author Name Unknown Organization [facility] Address [address] [facility] [place] [place] [address] Phone [phone] Care Team Providers Care Professor Of Literacy Name Role Phone Unavailable Primary Care Provider Unavailabl e Reason for Visit * Reason Comments Pre-op Clearance Encounter Details Date Type Department Care Team (Latest Contact Info) Description 09/03/2023 9:00 AM EDT Office Visit Family Medicine [address] [phone] Rinku Pandey MD [address] [place] [address] [place] Danielson [phone] Cervical radiculopathy at C5*; Tobacco abuse disorder; [...] MG/24HR Transdermal Patch 24 Hour (Nicoderm CQ)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 He had labs at [facility] as we.. All others negative other than [...] him. Already had blood work done at [facility] yesterday. He was told EKG is good for a year. Had one in May. documented in this encounter Plan of Treatment Upcoming Encounters Date Type Department Care Team (Late st Contact Info) Description 10/13/2023 7:40 AM EST Office Visit Dermatology [address] [place] [phone] Rupa Nieto PA-C [address] [place] [address] [place] [phone] 03/03/2024 8:20 AM EDT Office Visit Family Medicine [address] [place] [phone] Kizzy Bridges MD [address] [place] [address] [place] [phone] Health Maintenance Due Date Last Done Comments [...]
--- OUTSIDE RECORDS SUMMARY | 2023-09-18 12:36 | External Medical Summary | Summary of Care ---
Author Name Unknown Organization [facility] Address [address] [facility] [address] Phone [phone] Care Team Providers Care Cable Tower Operator Name Role Phone Unavailable Primary Care Provider Unavailabl e Reason for Visit * Reason Comments Follow Up Pt here for full ski n exam. Pt states that he gets blisters, off and on, all over his body. Ongoing issue for years now. Pt states that he has one on inner thigh currently. * Evaluate & Treat - Unlimited Visits (Within 30 days (routine)) - Pending Review Specialty Diagnoses / Procedures Referred By Bo hermosillo Referred To Contact Dermatology Diagnoses Hidradenitis suppurativa Parris Morrow PA-C [address] [place] [address] [place] [phone] Referral ID Status Reason Start Date Expiration Date Visits Requested Visits Authorized [id number] Pending Review Specialty Services Required 05/08/[phone] Encounter Details Date Type Department Care Team Description 08/13/2023 Office Visit Dermatology [address] [place] [phone] Rupa Nieto PA-C [address] [place] [address] [place] [phone] Hidradenitis suppurativa*; Furunculosis; Folliculitis; Skin exam, screening for cancer; Multiple nevi Allergies No known active allergiesdocumented as of this encounter (statuses as of 08/13/2023) Medications Medication Sig Dispensed Refills Start Date End Date Status Atorvastatin Calcium 20 MG Oral Tablet (Lipitor)Indicati ons:Hyperlipidemi a with target LDL less than 100 Take 1 Tablet by mouth in the morning. 30 Tablet 5 05/09/2023 Active Losartan Potassium 50 MG Oral Tablet (Cozaar)Indicatio ns:HTN, goal below 130/80 Take 1 Tablet by mouth in the morning. 90 Tablet 3 06/30/2023 Active hydroCHLOROthiazi de 25 MG Oral Tablet (Hydrodiuril)Irma cations:HTN, goal below 130/80 Take 1 Tablet by mouth in the morning. 90 Tablet 3 06/30/2023 Active Meloxicam 15 MG Oral Tablet Take 1 Tablet by mouth in the morning. for pain.. 30 Tablet 5 08/04/2023 Active Clindamycin Phosphate 1 % External GelIndications:Fu runculosis,Follic ulitis,Hidradenit is suppurativa Apply 2x daily to new and resolving acne like spots on trunk/arms/legs /back, and 1x daily to areas not currently active (see printed checkout sheet) 60 g 3 08/13/2023 Active Clindamycin Phosphate 1 % External SolutionIndicatio ns:Hidradenitis suppurativa Apply topically to affected area 2 times a day. To affected area of skin. 60 mL 5 05/08/2023 Discontinued Hospital, Clinic, or Other Facility Administered Medication Ordered Dose Route Frequency Start Date End Date Status albuterol sulfate (PROVENTIL) (2.5 MG/3ML) 0.083% inhalation solution 2.5 mgIndications:History of tobacco use,Cough,SOB (shortness of breath) 2.5 mg NEBULIZER Q4H PRN 08/18/2018 Act marcelino documented as of this encounter (statuses as of 08/13/2023) Active Problems Problem Noted Date HTN, goal below 130/80 06/02/2023 Displacement of lumbar intervertebral di sc without myelopathy 11/04/2008 ADVANCE DIRECTIVE INFORMATION 10/15/2008 Overview: Yes, Patient instructed to provide copy of advance directive for provider to review and to be scanned into Electronic Medical Record History of tobacco use 08/26/2008 documented as of this encounter (statuses as of 08/13/2023) Social History Tobacco Use Types Packs/Day Years [...] on file documented as of this encounter Patient Instructions * Patient Instructions* Rupa Nieto PA-C - 08/13/2023 1:07 PM EDT SUNSCREEN USE AND SUN PROTECTION: 1. The best protection is sun avoidance. Seek shade if you can, especially between 10am to 4pm (peak sun hours). 2. Use sunscreen with an SPF (Sun Protection Factor - the number on most sunscreen bottles) of 30 or more that protects from Ultraviolet A (UVA) and Ultraviolet B (UVB) wavelength light (strongly recommend SPF 50). This is referred to as broad spectrum sun protection because it protects from most wa velengths in both spectrums of UVA and UVB light. Unfortunately, even though the protection is broad it is not complete, therefore making sun avoidance the best protection. UVB and UVA have both beenimplicated in causing skin cancers. Older sunscreens only protected from UVB and sunscreens with added UVA protection should contain Titanium dioxide, Zinc oxide, or Avobenzone. Other oil free, non-comedogenic lotion with SPF 30 or greater is fine. 3. Use sun protection if outside for 15 minutes or more. Apply 20-30 minutes before going out and reapply every 1-2 hours. No sunscreen is truly water ''proof'' and it will wash away with sweat, swimming and rubbing. 4. Wear tightly woven, loose fitting (cooler) long sleeved clothing, UV-blocking sun glasses (eyes need protection as well) and wide-brimmed hatwear (no straw hats with holes because light still getsthrough). Strongly recommended *Neutrogena Pure and Free Baby SPF 60 (have separate face and body lotions) orCeraVe AM facial lotion (with SPF 30). If looking for non toxic alternatives-look for non-jase particle zinc. Product examples; Think sport, Think baby, [place], Babo botanicals, Alba BerGenBio, [place] baby. "Baby" products can be used for all ages. FURUNCULOSIS/FOLLICULITIS/EARLY HIDRADENITIS regimen: 1) Complete "bleach baths" 2x weekly 2) Wash prone areas daily with Hibiclens anti-bacterial soap (hot pink liquid-to body, not near eyes or ears, TOXIC to those areas) 3) Clindamycin gel 2x daily to flaring spots and once daily to prone areas when not flaring Swimming pools are chlorinated to help cut-down on microbes living in the water. Together, you willmake your very own swimming pool right in the bathtub! This special water will help cut down on microbes on the skin. STEPS: 1. Start by adding lukewarm water to fill a tub for a normal bath (about 40 gallons). 2. Put 1/2 cup of common liquid bleach (for example, Clorox) into the bath water. Check the bleach bottle to make sure that the concentration of bleach (also known as sodium hypochlorite) is about 6%. 3. Completely mix the added bleach in the water. This should create a solution of diluted bleach (about 0.005%), which is just a little stronger than chlorinated swimming pool water. 4. Soak in the chlorinated water for about 10 minutes. 5. Thoroughly rinse the skin clear with lukewarm, fresh water at the end of the bleach bath. 6. As soon as you're finished rinsing off, pat dry. Do not rub dry as this is the same as scratching! 7. Immediately apply any prescribed medication and/or emollients. 8. Repeat bleach baths as prescribed by Rupa Nieto PA-C. The following restrictions may apply: Can potentially cause dryness and/or irritation. My burn or sting skin if there are multiple breaks/ fissures in skin. Do not use bleach baths in patients with aknown contact allergy to chlorine. documented in this encounter Progress Notes * Bong Howell MD - 08/13/2023 3:29 PM EDT I have seen and examined the patient via teledermatology review of chart note and photos with Rupa Nieto PA-C. I have reviewed and agree with the assessment and plan. * Rupa Nieto PA-C - 08/13/2023 1:01 PM EDT SUBJECTIVE: History of Present Illness: Shahram Dunlap is a 48 year old male seen today for follow up of lesions/full skin exam. Previous office visit: 01/20/2023 Last attempted treatments include: bx x 1 (verruca) Gets blisters off and on over his body for years. One currently on inner thigh that is resolving. Enlarged, the open and discharge occurs then returns. Has used Hibiclens wash weekly and clindamycin solution with some improvement along with dietary changes from cardiology due to his elevated cholesterol. Sample Color Maker Documentation Patient offered physical therapist and declined. REVIEW OF SYSTEMS: SKIN: No other new or changing moles. HEME/LYMPH: No new or enlarging lumps or bumps. CONSTITUTIONAL: No nausea, vomiting, fevers, chills, diarrhea. No recent unintended weight loss, night sweats, appetite or malaise. RESP: negative MSK/EXT: Negative or as per HPI GI: negative CV: Negative or as per HPI Rest of systems are negative or as per HPI SKIN CANCER HX: NONE Reviewed, same day as visit, 0 [facility] Dermatology lab work(s)/pathology report(s) as well as those sent by referring provider prior to seeing pt. MEDICA TIONS: Current Outpatient Medications Medication Sig Dispense Refill Clindamycin Phosphate 1 % External Solution Apply topically to affected area 2 times a day. To affected area of skin. 60 mL 5 Atorvastatin Calcium 20 MG Oral Tablet (Lipitor) [...] the morning. for pain.. 30 Tablet 5 Current Facility-Administered Medications Medication Dose Route Frequency Provider Last Rate Last Admin albuterol sulfate (PROVENTIL) (2.5 MG/3ML) 0.083% inhalation solution 2.5 mg 2.5 mg Nebulizer Q4H PRN Meenu Newton PA-C 2.5 mg at 08/21/18 0847 ALLERG IES: Patient has noknown allergies. OBJECT MARCELINO: GEN: alert, no distress, appears oriented, pleasant, and cooperative. SKIN: Detailed exam of hair, face including lids and lips, neck, chest, abdomen, back, bilateral upper ext. (arm, hand, fingers), bilateral lower ext. (leg, foot, toes), palpation of scalp, fingernails, toenails, inguinal areas, groin (penis, scrotum and perineum), buttocks, and anus completed: 1. Face/neck/trunk/bilat arms and legs-Some resolving inflammatory papules, 1 resolving furuncle onmedial thigh, open comedones present in axilla/waistband with scarring on bilat lateral neck/trunk/forearms. 2. Trunk/bilat arms and legs-About 40 total; 2-5mm light and light-medium brown macules and soft papules. ASSESS MENT/PLAN: 1. Folliculitis/furunculosis/early HS with scarring on face/neck/trunk/bilat arms and legs- -Routine culture taken off medial thigh lesion. 1) Complete "bleach baths" 2x weekly 2) Wash prone areas daily with Hibiclens anti-bacterial soap (hot pink liquid-to body, not near eyes or ears, TOXIC to those areas) 3) Clindamycin gel 2x daily to flaring spots and once daily to prone areas when not flaring -Will consider oral antibiotic at next visit if not much improved. 2. Nevi on trunk/bilat arms and legs-no tx needed, pt given reassurance and written education aboutdiagnosis. Skin cancer brochure given and ABCDE's discussed with patient. Annual full body skin examination (unless I recommended otherwise), self-examination, and sun protection (SPF 30+ daily to sun exposed areas, with reapplication every 1-2 hours when out in sun for long periods of time) advised and discussed. Recommended sooner follow up for new or changing lesions. These changes include rapid enlargement, changes in color or shape or symptoms, bleeding, or other concerns. The common features and behavior of non-melanoma skin cancers (e.g. BCC/SCC) as well as the ABCDEs and ugly duckling features of melanoma were also reviewed. Patient alone today. Photo(s) of #1-2 taken, pt verbally consented to having photo(s) taken. Follow-up: 2-3 months for folliculitis/furunculosis/HS Contact patient via cell phone or My [facility] Ok to leave results on message: Yes Able to speak to none Patient Phone Numbers Applicable photos (if any) and chart reviewed by Dr. Bong Howell. Presumed diagnoses, expected natural histories, and management options discussed with the patient at length. Questions were addressed and anticipatory guidance provided. They were instructed to contact me if additional questions, concerns, or problems develop in the interim. -There were no barriers to learning and no other pain was related to today's visit. The patient and/or person accompanying patient demonstrates understanding of the visit and treatment. Rupa Nieto PA-C 08/13/2023 1:01 PM Ref: PARRIS MORROW[[id number]] [address] [place] [address] [place] [phone] (office) [phone] (fax) PCP: None documented in this encounter Nursing Notes * Merary Goodwin, CLAY - 08/13/2023 12:59 PM EDT Patient identified by full name and date of Chief Complaint Patient presents with Follow Up Pt here for full skin exam. Pt states that he gets blisters, off and on, all over his body. Ongoingissue for years now. Pt states that he has one on inner thigh currently. documented in this encounter Miscellaneous Notes * Addendum Note - Merary Goodwin LPN - 08/13/2023 1:37 PM EDTAddended by: MERARY GOODWIN on: 08/13/2023 01:37 PM Modules accepted: Orders documented in this encounter Plan of Treatment Upcoming Encounters Date Type Specialty Care Team Description 10/13/2023 Office Visit Dermatology Rupa Nieto PA-C [address] [place] [address] [place] [phone] Pending Results Name Type Priority Associated Diagnoses Date /Time CULTURE, WOUND, SUPERFICIAL, AEROBIC Lab Routine Furunculosis Folliculitis Hidradenitis suppurativa 08/13/2023 1:47 PM EDT Health Maintenance Due Date Last Done [...] Depression Screening 05/08/2024 05/08/2023 GFR 07/14/2024 07/14/2023, 07/06/2023, 05/08/2023, Additional history exists Albumin/Creatinine Ratio 05/08/2026 [...] Not on filedocumented as of this encounter Procedures Procedure Name Priority Date/Time Associated Diagnosis Comments DERM IMAGE (SITE) Routine 08/13/2023 Furunculosis documented in this encounter Results * DERM IMAGE (SITE) (08/13/2023) 08/13/2023 Rupa Nieto PA-C DIGITAL PHOTOG SOPHIA documented in this encounter Visit Diagnoses Diagnosis Hidradenitis suppurativa- Primary Hidradenitis Furunculosis Carbuncle and furuncle of unspecified site Folliculitis Other specified disease of hair and hair follicles Skin exam, screening for cancer Screening for malignant neoplasm of the skin Multiple nevi Benign neoplasm of skin, site unspecified documented in this encounter
--- OUTSIDE RECORDS SUMMARY | 2023-09-18 12:37 | External Medical Summary | Summary of Care ---
Author Name Unknown Organization [facility] Address [address] [facility] [address] Phone [phone] Care Team Providers Care Cleaning Associate Name Role Phone Unavailable Primary Care Provider [...] Dermatology Diagnoses Hidradenitis suppurativa Parris Morrow PA-C [address] [place] [address] [place] [phone] Referral ID Status Reason Start Date Expiration Date Visits Requested Visits Authorized [id number] Pending Review Specialty Services Required 05/08/[phone] Encounter Details Date Type Department Care Team Description 08/13/2023 Office Visit Dermatology [address] [place] [phone] Rupa Nieto PA-C [address] [place] [address] [place] [phone] Hidradenitis suppurativa*; Furunculosis; Folliculitis; Skin exam, screening [...] zinc. Product examples; Think sport, Think baby, [place], Babo botanicals, Alba [employer], [place] baby. "Baby" products can be used for [...] documented in this encounter Progress Notes * Rupa Nieto PA-C - 08/13/2023 1:01 [...] from cardiology due to his elevated cholesterol. Chef Passenger Vessel Documentation Patient offered tobacco educator and declined. REVIEW OF SYSTEMS: SKIN: No [...] NONE Reviewed, same day as visit, 0 [facility] Dermatology lab work(s)/pathology report(s) as well [...] ALLERG IES: Patient has noknown allergies. OBJECT YINKA: GEN: alert, no distress, appears oriented, pleasant, [...] Contact patient via cell phone or My [facility] Ok to leave results on message: Yes [...] Nieto PA-C 08/13/2023 1:01 PM Ref: PARRIS MORROW[[id number]] [address] [place] [address] [place] [address] (office) [phone] (fax) PCP: None documented in this encounter Nursing Notes * Latonia Goodwin LPN - 08/13/2023 12:59 PM EDT Patient identified by full name and date of Chief Complaint Patient presents with Follow Up Pt here for full skin exam. Pt states that he gets blisters, off and on, all over his body. Ongoingissue for years now. Pt states that he has one on inner thigh currently. documented in this encounter Miscellaneous Notes * Addendum Note - Latonia Goodwin LPN - 08/13/2023 1:37 PM EDTAddended by: LATONIA GOOWDIN on: 08/13/2023 01:37 PM Modules accepted: Orders documented in this encounter Plan of Treatment Upcoming Encounters Date Type Specialty Care Team Description 10/13/2023 Office Visit Dermatology Rupa Nieto PA-C [address] [place] [address] [place] [phone] Scheduled Orders Name Type Priority Associated Diagnoses Orde r Schedule CULTURE, WOUND, SUPERFICIAL, AEROBIC Lab Routine Furunculosis Folliculitis Hidradenitis suppurativa Ordered: 08/13/2023 Health Maintenance Due Date Last Done Comments [...] as of this encounter Visit Diagnoses Diagnosis Hidradenitis suppurativa- Primary Hidradenitis Furunculosis Carbuncle and furuncle of unspecified site Folliculitis Other specified disease of hair and hair follicles Skin exam, screening for cancer Screening for malignant neoplasm of the skin Multiple nevi Benign neoplasm of skin, site unspecified documented in this encounter
--- OUTSIDE RECORDS SUMMARY | 2023-09-18 12:37 | External Medical Summary | Summary of Care ---
Author Name Unknown Organization [facility] Address [address] [facility] [address] Phone [phone] Care Team Providers Care Pulp Press Tender Name Role Phone Unavailable Primary Care Provider [...] Dermatology Diagnoses Hidradenitis suppurativa Parris Morrow PA-C [address] [place] [address] [place] [phone] Referral ID Status Reason Start Date Expiration Date Visits Requested Visits Authorized [id number] Pending Review Specialty Services Required 05/08/[phone] Encounter Details Date Type Department Care Team Description 08/13/2023 Office Visit Dermatology [address] [place] [phone] Rupa Nieto PA-C [address] [place] [address] [place] [address] Hidradenitis suppurativa*; Furunculosis; Folliculitis; Skin exam, screening [...] zinc. Product examples; Think sport, Think baby, [place], Babo botanicals, Alba [employer], [place] baby. "Baby" products can be used for [...] from cardiology due to his elevated cholesterol. Educational Administrator Documentation Patient offered information lead and declined. REVIEW OF SYSTEMS: SKIN: No [...] NONE Reviewed, same day as visit, 0 [facility] Dermatology lab work(s)/pathology report(s) as well [...] Nieto PA-C 08/13/2023 1:01 PM Ref: PARRIS MORROW[[id number]] [address] [place] [address] [place] [address] (office) [phone] (fax) PCP: None documented in this encounter Nursing Notes * Merary Goodwin LPN - 08/13/2023 12:59 PM EDT [...] 10/13/2023 Office Visit Dermatology Rupa Nieto PA-C [address] [place] [address] [place] [phone] Pending Results Name Type Priority Associated Diagnoses [...]
--- OUTSIDE RECORDS SUMMARY | 2023-09-18 12:37 | External Medical Summary | Summary of Care ---
Author Name Unknown Organization [facility] Address [address] [facility] [address] Phone [phone] Care Team Providers Care Phlebotomy Technologist Name Role Phone Unavailable Primary Care Provider Unavailabl e Reason for Visit * Reason Onset Date Comments Appointment 08/12/2023 Ortho spine/[facility] Encounter Details Date Type Department Care Team Description 08/12/2023 Telephone Family Medicine [address] [place] [id number] Parris Munroe PA-C [address] [place] [address] [place] [phone] Appointment (Ortho spine/[facility] ) Allergies No known active allergiesdocumented as of this encounter (statuses as of 08/12/2023) Medications Medication Sig Dispensed Refills Start Date End Date Status Clindamycin Phosphate 1 % External SolutionIndications: Hidradenitis suppurativa Apply topically to affected area 2 times a day. To affected area of skin. 60 mL 5 05/08/2023 Active Atorvastatin Calcium 20 MG Oral Tablet (Lipitor)Indications [...] for pain.. 30 Tablet 5 08/04/2023 Active Hospital, Clinic, or Other Facility Administered Medication Ordered Dose Route Frequency Start Date End Date Status albuterol sulfate (PROVENTIL) (2.5 MG/3ML) 0.083% inhalation solution 2.5 mgIndications:History of tobacco use,Cough,SOB (shortness of breath) 2.5 mg NEBULIZER Q4H PRN 08/18/2018 Act yinka documented as of this encounter (statuses as of 08/12/2023) Active Problems Problem Noted Date HTN, goal below 130/80 06/02/2023 Displacement of lumbar intervertebral di sc without myelopathy 11/04/2008 ADVANCE DIRECTIVE INFORMATION 10/15/2008 Overview: Yes, Patient instructed to provide copy of advance directive for provider to review and to be scanned into Electronic Medical Record History of tobacco use 08/26/2008 documented as of this encounter (statuses as of 08/12/2023) Social History Tobacco Use Types Packs/Day Years [...] encounter Miscellaneous Notes * Telephone Encounter - CAMILO Lema - 08/12/2023 12:04 PM EDT [place] [facility]. Xray will push [place] [facility] and records faxed to [phone]. documented in this encounter Plan of Treatment Upcoming Encounters Date Type Specialty Care Team Description 08/13/2023 Office Visit Dermatology Rupa Nieto PA-C [address] [place] [address] [place] [phone] Health Maintenance Due Date Last Done Comments [...] Depression Screening 05/08/2024 05/08/2023 GFR 07/14/2024 07/14/2023, 05/04, 05/08/2023, Additional history [...]
--- OUTSIDE RECORDS SUMMARY | 2023-09-18 12:37 | External Medical Summary | Summary of Care ---
Author Name Unknown Organization [facility] Address [address] [facility] [place] [address] Phone [phone] Care Team Providers Care Water Softener Installer Name Role Phone Unavailable Primary Care Provider Unavailabl e Reason for Visit * Reason Onset Date Comments Order Request 08/01/2023 MRI Encounter Details Date Type Department Care Team Description 08/01/2023 Telephone Family Medicine [address] [place] [address] Parris Munroe PA-C [address] [place] [address] [place] Danielson [phone] Order Request (MRI) Allergies No known active allergiesdocumented as of this encounter (statuses as of 08/06/2023) Medications Medication Sig Dispensed Refills Start Date [...] the morning. 90 Tablet 3 06/30/2023 Active Hospital, Clinic, or Other Facility Administered Medication Ordered Dose Route Frequency Start Date End Date Status albuterol sulfate (PROVENTIL) (2.5 MG/3ML) 0.083% inhalation solution 2.5 mgIndications:History of tobacco use,Cough,SOB (shortness of breath) 2.5 mg NEBULIZER Q4H PRN 08/18/2018 Act yinka documented as of this encounter (statuses as of 08/06/2023) Active Problems Problem Noted Date HTN, goal below 130/80 06/02/2023 Displacement of lumbar intervertebral di sc without myelopathy 11/04/2008 ADVANCE DIRECTIVE INFORMATION 10/15/2008 Overview: Yes, Patient instructed to provide copy of advance directive for provider to review and to be scanned into Electronic Medical Record History of tobacco use 08/26/2008 documented as of this encounter (statuses as of 08/06/2023) Social History Tobacco Use Types Packs/Day Years Used Date Smoking Tobacco: Every Day Cigarettes 0.5 32 Smokeless Tobacco: Never Comments:Was smoking 1.5 per day 12 years now /2 PPD 05/08/23 Alcohol Use Standard Drinks/Week Comments Yes 0 (1 standard drink = 0.6 oz pur e alcohol) weekends Sex Assigned at Date Recorded Not on file Job Start Date Occupation Industry Not on file Not on file Not on file documented as of this encounter Miscellaneous Notes * Telephone Encounter - Aliyah Amin CMA - 08/06/2023 9:40 AM EDT Patient was seen already. * Telephone Encounter - Parris Munroe PA-C - 08/01/2023 9:45 AM EDT Needs seen for this prior to ordering. Will need records that were already done as well because if he hasn't seen Ortho or had PT, it's unlikely that an MRI will be covered for us to order. May need to refer to Ortho first. * Telephone Encounter - Odalys Faust LPN - 08/01/2023 9:29 AM EDT Looks like pt has recently been seeing Parris for BP concerns - don't see any mention of Left shoulder concerns in office notes Parris: Do you remember pt ever mentioning this to you? * Telephone Encounter - CAMILO Londono - 08/01/2023 9:08 AM EDT An order was requested for this patient. Name of Requesting Provider: Patient Order Requested: MRI Diagnosis/Reason for Request: Pinched nerve/ dull pain in L shoulder- was initially workman's comp issue but workman's comp has since denied- patient was scheduled through employer for MRI at [facility]- cannot return to work without MRI- out of network- requesting PCP put an order in for MRI If order request is for Mammogram: Is the patient having any breast symptoms? N/A Is there a chance of ? N/A Has the patient had any breast problems in the past? NA Does the order need to be faxed somewhere? If so, where?: No Fax Number, if applicable: N/A Call Back Number: [phone] If the caller is not a current patient, please advise the patient to call their current PCP to havethe order's prior to being seen in our office. The patient was informed that our providers would not order anything (medication, labs, etc.) prior to being seen. documented in this encounter Plan of Treatment Upcoming Encounters Date Type Specialty Care Team Description 08/07/2023 Imaging Radiology 03/10/2024 Office Visit Dermatology Rupa Nieto PA-C [address] [place] [address] [place] Danielson [address] Health Maintenance Due Date [...]
--- OUTSIDE RECORDS SUMMARY | 2023-09-18 12:37 | External Medical Summary ---
Author Name Unknown Address Unknown Organization K01:[facility] [place] [address] [place] [address] Laboratory Report Ordering Provider Test Date Status ARNOLD OSORIO 08/13/2023 13:47:16 Final Observation Date Value Abnormality Reference (Units) Status Bacteria identified in Specimen by Culture 08/13/2023 13:47:16 [id number]^STAPHYLOCO CCUS LUGDUNENSIS Abnormal Final One colony Staphylococcus becky gdunensis
This result may not be clinically significant and should be interpreted in the context of the microbe detected. Performing Location [facility] [place] [address] [place] [address] Ordering Provider Test Date Status ARNOLD OSORIO 08/13/2023 13:47:16 Final Observation Date Value Abnormality Reference (Units ) Status Clindamycin 08/13/2023 13:47:16 <=0.25 Susceptible Final Erythromycin susceptibility 08/13/2023 13:47:16 <=0.25 Susceptible Final Oxacillinsusceptibility 08/13/2023 13:47:16 0.5 Susceptible Final Penicillin susceptibility 08/13/2023 13:47:16 <=0.03 Resistant Final Tetracyclinesusceptibility 08/13/2023 13:47:16 <=1 Susceptible Final TMP-SMZ susceptibility 08/13/2023 13:47:16 <=10 Susceptible Final Vancomycinsusceptibility 08/13/2023 13:47:16 <=0.5 Susceptible Final Test: Culture, Wound, Superf icial, Aerobic
Specimen Source: Thigh, Unspecified
Specimen Type: Superficial Wound
Specimen Date: 08/13/2023 1:47 PM
Result Date: 08/17/2023 11:07 AM
Result Status: Final result
Abnormal: Yes
Resulting Lab: [facility] [place]
[address]
[place] [address]

CULTURE

One colony Staphylococcus lugdunensis (Abnormal)

This result may not be clinically significant and should be interpreted in
the context of the microbe detected.

SUSCEPTIBILITY

Staphylococcus
lugdunensis
METHOD MICROBROTH
DILUTIONS

CLINDAMYCIN <=0.25 Susceptible
ERYTHROMYCIN <=0.25 Susceptible
OXACILLIN 0.5 Susceptible
PENICILLIN G <=0.03 Resistant
TETRACYCLINE <=1 Susceptible
TRIMETH/SULFAMETHOXAZOLE <=10 Susceptible
VANCOMYCIN <=0.5 Susceptible

null Performing Location [facility] [place] [address] [place] [address]
--- OUTSIDE RECORDS SUMMARY | 2023-09-18 12:37 | External Medical Summary | Summary of Care ---
Author Name Unknown Organization [facility] [address] [address] Phone [phone] Care Team Providers Care Hospice Music Therapy Name Role Phone Unavailable Primary Care Provider [...] Dermatology Diagnoses Hidradenitis suppurativa Parris Morrow PA-C [address] [place] [address] [place] [phone] Referral ID Status Reason Start Date Expiration Date Visits Requested Visits Authorized [id number] Pending Review Specialty Services Required 05/08/2023 999 999 Encounter Details Date Type Department Care Team Description 08/13/2023 Office Visit Dermatology [address] [place] [phone] Rupa Nieto PA-C [address] [place] [address] [place] [phone] Hidradenitis suppurativa*; Furunculosis; Folliculitis; Skin exam, screening [...] zinc. Product examples; Think sport, Think baby, [place], Babo botanicals, Alba GOWEX, [place] baby. "Baby" products can be used for [...] from cardiology due to his elevated cholesterol. Director Design Documentation Patient offered paper cap machine operator and declined. REVIEW OF SYSTEMS: SKIN: No [...] NONE Reviewed, same day as visit, [facility] Dermatology lab work(s)/pathology report(s) as well as [...] Nieto PA-C 08/13/2023 1:01 PM Ref: PARRIS MORROW[[id number]] [address] [place] [address] [place] [phone] (office) [phone] (fax) PCP: None documented in this encounter [...] 10/13/2023 Office Visit Dermatology Rupa Nieto PA-C [address] [place] [address] [place] Danielson [phone] Pending Results Name Type Priority Associated Diagnoses [...]
--- OUTSIDE RECORDS SUMMARY | 2023-09-18 12:37 | External Medical Summary | Summary of Care ---
Author Name Unknown Organization [facility] Address [address] [place] [address] Phone [phone] Care Team Providers Care Securities Teller Name Role Phone Unavailable Primary Care Provider Unavailabl e Reason for Referral * Precert (Within 10 days (routine)) - Pending Review Specialty Diagnoses / Procedures Referred By Bo hermosillo Referred To Contact Radiology Diagnoses Neck pain Cervical radiculopathy Weakness of left upper extremity Procedures MRI C SPINE WO CONTRAST Parris Munroe PA-C [address] [place] [address] [place] [phone] Referral ID Status Reason Start Date Expiration Date V isits Requested Visits Authorized [id number] Pending Review 08/04/2023 999 999 Reason for Visit * Reason Comments Re-Check Encounter Details Date Type Department Care Team Description 08/04/2023 Office Visit Family Medicine [address] [place] [phone] Parris Munroe PA-C [address] [place] [address] [place] [phone] Neck pain*; Cervical radiculopathy; Weakness of left upper extremity Allergies No known active allergiesdocumented as of this encounter (statuses as of 08/04/2023) Medications Medication Sig Dispensed Refills Start Date [...] as of this encounter (statuses as of 08/04/2023) Active Problems Problem Noted Date HTN, goal below 130/80 06/02/2023 Displacement of lumbar intervertebral di sc without myelopathy 11/04/2008 ADVANCE DIRECTIVE INFORMATION 10/15/2008 Overview: Yes, Patient instructed to provide copy of advance directive for provider to review and to be scanned into Electronic Medical Record History of tobacco use 08/26/2008 documented as of this encounter (statuses as of 08/04/2023) Social History Tobacco Use Types Packs/Day Years [...] Sign Reading Time Taken Comments Blood Pressure 136/78 08/04/2023 1:23 PM EDT Pulse 68 08/04/2023 1:23 PM EDT Temperature 36.6 C (97.8 F) 08/04/2023 1:23 PM ED T Respiratory Rate 16 08/04/2023 1:23 PM EDT Oxygen Saturation - - Inhaled Oxygen Concentration - - Weight 107 kg (236 lb) 08/04/2023 1:23 PM EDT Height 175.3 cm (5' 9") 08/04/2023 1:23 PM EDT Body Mass Index 34.85 08/04/2023 1:23 PM EDT documented in this encounter Progress Notes * Parris Munroe PA-C - 08/04/2023 1:31 PM EDT Images from the original note were not included. History of Present Illness Shahram Dunlap is a 48 year old male that presents for Re-Check Nursing Notes: Aleksandra Pryor RN 08/04/23 1330 Sign at exiting of workspace Pt here to discuss need for MRI. Pt states 07/16/23 he woke up with a numb left arm, on 07/18/23 he had a lot of pain in the arm, he went to [facility] on 07-20-23, had xrays done at [facility] , given steroids. Then last week on 07-31-23 he went to [facility] in [place], they gave him MRI and Prednisone and advised PT and MRI for a pinched Nerve. Pt did PT 2 days last week, scheduled for 2 days this week also Pt states Worker's Comp is denying the claim. Pt has an MRI scheduled for tomorrow at [facility]. HPI: Shahram Dunlap is a 48 year old male presenting to the office today for continued shoulder problems. Timeline above, but will reiterate. 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 He then started to have pain along with the numbness on 07/18. He was taking Tylenoland Advil so that he could get home. daren in [facility] saw him on 07/20, and he had XRays at [facility] which were unrevealing. He was given steroids x 6 days, and he was told to follow up if it wasn't improved. He then was seen at [facility] through work in [place] on 07/24/23 for continued symptoms and was given Meloxicam in the morning as well as Flexeril before bed. His symptoms improved very slightly, but sometimes really flares back up. He is still getting numbness into his hand/left arm at times throughout the day. He isn't able to lay on either side without being uncomfortable, so he has been sleeping in the recliner. His left hand feels 'heavy'. He was given a script for PT and an MRI but this was through worker's comp. He has since been denied worker's comp but has completed 2 sessions of PT and has more scheduled this week. Patient has an MRI scheduled for tomorrow at [facility]. He is also going to have STD paperwork that will need to be completed. He was first off on 07/25 and he is anticipated to be off for at least the rest of this week. His pain is behind the left shoulder blade, and he has some up into his left neck as well. He has some down into the arm and into his knuckles as well. Current Outpatient Medications Medication Instructions atorvaSTATin (LIPITOR) 20 mg, Oral, Daily(AM) Clindamycin Phosphate 1 % External Solution Topical, BID (.AM/PM), To affected area of skin. hydroCHLOROthiazide (HYDRODIURIL) 25 mg, Oral, Daily(AM) losartan (COZAAR) 50 mg, Oral, Daily(AM) Meloxicam 15 mg, Oral, Daily(AM), for pain. Med list reviewed by me today. Physical Exam Vitals: 08/04/23 1323 Temp: 36.6 C (97.8 F) Pulse: 68 Resp: 16 BP: 136/78 BMI: 34.84 Physical exam: General: Well-Developed. Well appearing. No acute distress. HENT: Normocephalic. Atraumatic. Hearing normal. Eyes: EOMI. Sclera without erythema or icterus. No discharge. Pupils equal, round, reactive to light. Neck: No tracheal deviation. ROM intact. No stridor. Note mild tenderness midline in the C5-C7 region. Musculoskeletal: ROM intact and appears normal. Passive ROM intact B/L UE. Strength 5/5 RUE to all motions. LUE with 4/5 abduction, 4/5 elbow flexion, 3/5 thumb and finger strength 3/5 home school coordinator strength. Note muscular tenderness of the left paraspinous muscles, trapezius, and rhomboids. Neurologic: Alert. Oriented x 3. Appears stated age. CN 2-12 grossly intact. Skin: Warm and dry. No apparent rashes or ecchymoses. No jaundice or pallor noted. Assessment and Plan Neck pain Cervical radiculopathy Weakness of left upper extremity Failed NSAIDs, PO Steroids, muscle relaxer, home stretching regimen, and PT. Recommended MRI of C spine and continued PT for now. - MRI C SPINE WO CONTRAST; Future Wrap-Up Check-out note: MRI? I spent a total of 30-39 minutes (exact time 25 mins) on the date of service in preparation, delivery, and documentation of the care provided to Shahram Dunlap excluding any time spent in the performance of separately billed services. documented in this encounter Nursing Notes * Aleksandra Pryor RN - 08/04/2023 1:22 PM EDT Pt here to discuss need for MRI. Pt states 07/16/23 he woke up with a numb left arm, on 07/18/23 he had a lot of pain in the arm, he went to [facility] on 07-20-23, had xrays done at [facility] , given steroids. Then last week on 07-31-23 he went to [facility] in [place], they gave him MRI and Prednisone and advised PT and MRI for a pinched Nerve. Pt did PT 2 days last week, scheduled for 2 days this week also Pt states Worker's Comp is denying the claim. Pt has an MRI scheduled for tomorrow at [facility]. documented in this encounter Plan of Treatment Upcoming Encounters Date Type Specialty Care Team Description 08/07/2023 Imaging Radiology 03/10/2024 Office Visit Dermatology Rupa Nieto PA-C [address] [place] [address] [place] [phone] Scheduled Orders Name Type Priority Associated Diagnoses Orde r Schedule MRI C SPINE WO CONTRAST Medical Imaging Routine Neck pain Cervical radiculopathy Weakness of left upper extremity Expected: 08/04/2023, Expires: 09/04/2024 Health Maintenance Due Date Last Done Comments [...] as of this encounter Visit Diagnoses Diagnosis Neck pain- Primary Cervicalgia Cervical radiculopathy Brachial neuritis or radiculitis nos Weakness of left upper extremity Other musculoskeletal symptoms referable to limbs documented in this encounter
--- OUTSIDE RECORDS SUMMARY | 2023-09-18 12:37 | External Medical Summary | Summary of Care ---
Author Name Unknown Organization [facility] Address [address] [place] [address] Phone [phone] Care Team Providers Care Dray Driver Name Role Phone Unavailable Primary Care Provider Unavailabl e Reason for Visit * Reason Onset Date Comments Status Check 08/08/2023 Encounter Details Date Type Department Care Team Description 08/08/2023 Telephone Family Medicine [address] [place] [address] Parris Munroe PA-C [address] [place] [address] [place] [address] Status Check Allergies No known active allergiesdocumented as of [...] encounter Miscellaneous Notes * Telephone Encounter - Jasmina Mejía LPN - 08/08/2023 2:03 PM EDT Pt aware forms are ready - he will hand picker on Friday * Telephone Encounter - CAMILO Pang - 08/08/2023 11:36 AM EDT Patient calling to see if short term disability form are completed. Spoke with Nurse on Friday advisinés Nye had them waiting to be signed. Mark advisinés documented in this encounter Plan of Treatment Upcoming Encounters Date Type Specialty Care Team Description 08/13/2023 Office Visit Dermatology Rupa Nieto PA-C [address] [place] [address] [place] [phone] Health Maintenance Due Date Last Done Comments [...]
--- OUTSIDE RECORDS SUMMARY | 2023-09-18 12:37 | External Medical Summary | Summary of Care ---
Author Name Unknown Organization [facility] Address [address] [place] [address] Phone [phone] Care Team Providers Care Asset Protection Representative Name Role Phone Unavailable Primary Care Provider Unavailabl e Reason for Visit * Reason Onset Date Comments Films 08/12/2023 MRI Encounter Details Date Type Department Care Team Description 08/12/2023 Telephone Family Medicine [address] [place] [address] Parris Munroe PA-C [address] [place] [address] [place] [phone] Films (MRI ) Allergies No known active allergiesdocumented as [...] encounter Miscellaneous Notes * Telephone Encounter - RT Amirah - 08/12/2023 12:55 PM EDT Images pushed via PACS on 08/12/23. * Telephone Encounter - CAMILO Lema - 08/12/2023 12:01 PM EDT Can you please push MRI films from 08/07/23 to [facility] for upcoming appt. Thanks. documented in this encounter Plan of Treatment Upcoming Encounters Date Type Specialty Care Team Description 08/13/2023 Office Visit Dermatology Rupa Nieto PA-C [address] [place] [address] [place] [address] Health Maintenance Due Date [...]
--- OUTSIDE RECORDS SUMMARY | 2023-09-18 12:37 | External Medical Summary | Summary of Care ---
Author Name Unknown Organization [facility] Address [address] [facility] [place] [address] Phone [phone] Care Team Providers Care Rock Crushing Machine Operator Name Role Phone Unavailable Primary Care Provider Unavailabl e Reason for Visit * Reason Onset Date Comments Appointment 08/05/2023 MRI Encounter Details Date Type Department Care Team Description 08/05/[address]phone [address] [facility] [place] [id number] Lisa Peterson, RT (M) Appointment (MRI) Allergies No known active allergiesdocumented as of this encounter (statuses as of 08/05/2023) Medications Medication Sig Dispensed Refills Start Date [...] as of this encounter (statuses as of 08/05/2023) Active Problems Problem Noted Date HTN, goal below 130/80 06/02/2023 Displacement of lumbar intervertebral di sc without myelopathy 11/04/2008 ADVANCE DIRECTIVE INFORMATION 10/15/2008 Overview: Yes, Patient instructed to provide copy of advance directive for provider to review and to be scanned into Electronic Medical Record History of tobacco use 08/26/2008 documented as of this encounter (statuses as of 08/05/2023) Social History Tobacco Use Types Packs/Day Years [...] Miscellaneous Notes * Telephone Encounter - RT Yumiko (Antonio) - 08/05/2023 4:36 PM EDT Name: Shahram Dunlap Do you have any of the following: Pacemaker, stents, heart valves, aneurysm clips? No Have you ever worked with metal or have you ever gotten metal in your eyes? No Have you had a colonoscopy in the last 30 days? No On dialysis? No Do you have any dermals or body piercing's? No or ? Do you wear an insulin pump or diabetic monitor? No RT Brian Calderon) documented in this encounter Plan of Treatment Upcoming Encounters Date Type Specialty Care Team Description 08/07/2023 Imaging Radiology 03/10/2024 Office Visit Dermatology Rupa Nieto PA-C [address] [place] [address] [place] [phone] Health Maintenance Due Date Last Done Comments [...]
--- OUTSIDE RECORDS SUMMARY | 2023-09-18 12:37 | External Medical Summary | Summary of Care ---
Author Name Unknown Organization [facility] Address [address] [place] [address] Phone [phone] Care Team Providers Care Chicken Hatchery Helper Name Role Phone Unavailable Primary Care Provider Unavailabl e Reason for Visit * Reason Onset Date Comments Films 08/12/2023 MRI Encounter Details Date Type Department Care Team Description 08/12/2023 Telephone Family Medicine [address] [place] [address] Parris Munroe PA-C [address] [place] [address] [place] Danielson [address] Films (MRI ) Allergies [...] please push MRI films from 08/07/23 to [facility] for upcoming appt. Thanks. documented in this encounter Plan of Treatment Upcoming Encounters Date Type Specialty Care Team Description 08/13/2023 Office Visit Dermatology Rupa Nieto PA-C [address] [place] [address] [place] Danielson [address] Health Maintenance Due Date [...]
--- OUTSIDE RECORDS SUMMARY | 2023-09-18 12:38 | External Medical Summary | Summary of Care ---
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 Name Role Phone Unavailable Primary Care Provider Unavailabl e Reason for Referral * Evaluate & Treat - Unlimited Visits (Within 30 days (routine)) - Pending Review Specialty Diagnoses / Procedures Referred By Bo hermosillo Referred To Contact Dermatology Diagnoses Hidradenitis suppurativa Parris Munroe PA-C [address] [place] [address] [place] [phone] Referral ID Status Reason Start Date Expiration Date Visits Requested Visits Authorized [id number] Pending Review Specialty Services Required 05/08/[phone] Question Answer Referral Priority Within 30 days (routine) Are you referring the patient for Mohs Surgery and have a current positive skin cancer biopsy result? No What is the reason for the patient referral? Other Reason for Visit * Reason Comments Physical-Exam Encounter Details Date Type Department Care Team Description 05/08/2023 Office Visit Family Medicine [address] [place] [phone] Parris Munroe PA-C [address] [place] [address] [place] [phone] Hidradenitis suppurativa*; HTN, goal below 130/80; Weak urine stream; Lipid screening; Need for hepatitis C screening test; Special screening examination for viral disease Allergies No known active allergiesdocumented as of this encounter (statuses as of 05/08/2023) Medications Medication Sig Dispensed Refills Start Date End Date Status Clindamycin Phosphate 1 % External SolutionIndicatio ns:Hidradenitis suppurativa Apply topically to affected area 2 times a day. To affected area of skin. 60 mL 5 05/08/2023 Active Losartan Potassium-HCTZ 50-12.5 MG Oral Tablet (Hyzaar) Take 1 Tablet by mouth in the morning. 30 Tablet 5 05/08/2023 Active albuterol (PROAIR HFA) 108 (90 BASE) MCG/ACT inhalerIndication s:SOB (shortness of breath),Cough,His tory of tobacco use Inhale 2 Puffs by mouth every 4 hours as needed for Wheezing. 1 Inhaler 1 08/18/2018 3 Discontinue d(Medicatio n List Clean Up) fluticasone-salme terol (ADVAIR DISKUS) 250-50 MCG/DOSE inhalerIndication s:History of tobacco use,SOB (shortness of breath) Inhale 1 Puff by mouth 2 times a day. 1 Disk Dosing Unit 5 08/28/2018 3 Discontinue d(Medicatio n List Clean Up) nicotine (NICODERM CQ) 7 MG/24HR patchIndications: Tobacco use disorder Place 1 Patch topically on the skin daily. On upper body/outer arm, change once a day for two weeks. 14 Patch 0 07/20/2020 3 Discontinue d(Medicatio n List Clean Up) nicotine (NICODERM CQ) 14 MG/24HR PatchIndications: Tobacco use disorder Place 1 Patch topically on the skin daily. On upper body/outer arm, change once a day for two weeks. 14 Patch 0 07/20/2020 3 Discontinue d(Medicatio n List Clean Up) nicotine (NICODERM CQ) 21 MG/24HR PatchIndications: Tobacco use disorder Place 1 Patch topically on the skin daily. On upper body/upper arm, change once a day for 6 weeks. 42 Patch 0 07/20/2020 3 Discontinue d(Medicatio n List Clean Up) Hospital, Clinic, or Other Facility Administered Medication Ordered Dose Route Frequency Start Date End Date Status albuterol sulfate (PROVENTIL) (2.5 MG/3ML) 0.083% inhalation solution 2.5 mgIndications:History of tobacco use,Cough,SOB (shortness of breath) 2.5 mg NEBULIZER Q4H PRN 08/18/2018 Act yinka documented as of this encounter (statuses as of 05/08/2023) Active Problems Problem Noted Date Displacement of lumbar intervertebral di sc without myelopathy 11/04/2008 ADVANCE DIRECTIVE INFORMATION 10/15/2008 Overview: Yes, Patient instructed to provide copy of advance directive for provider to review and to be scanned into Electronic Medical Record History of tobacco use 08/26/2008 documented as of this encounter (statuses as of 05/08/2023) Social History Tobacco Use Types Packs/Day Years [...] Sign Reading Time Taken Comments Blood Pressure 194/104 05/08/2023 1:40 PM EDT Pulse 78 05/08/2023 1:40 PM EDT Temperature 36.3 C (97.4 F) 05/08/2023 1:40 PM ED T Respiratory Rate - - Oxygen Saturation 92% 05/08/2023 1:40 PM EDT Inhaled Oxygen Concentration - - Weight 116.9 kg (257 lb 11.2 oz) 05/08/2023 1:40 PM EDT Height - - Body Mass Index 38.06 01/17/2023 3:15 PM EDT documented in this encounter Progress Notes * Parris Munroe PA-C - 05/08/2023 1:47 PM EDT Images from the original note were not included. History of Present Illness Shahram Dunlap is a 48 year old male that presents for Physical-Exam Nursing Notes: Aliyah Amin, MED ASSIST 05/08/23 1353 Signed He is here for a physical to reestablish care. 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 It came down after sitting. He get boils in his groin and his armpits that are painful. He is also having trouble with BM and urination. He is also having some sinus issues and breathing trouble. HPI: Shahram Dunlap is a 48 year old male presenting to the office today for physical to re-establish care. 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 He doesn't have a BP cuff at home to check. 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 He was therefore passed x 2 year extension. He has had an EKG in 2018 at which time it was normal. He has been having boils under his armpits, in the groin, on his back. He has been using OTC Hibiclens type rinses which helps somewhat if he uses it regularly. He was told that maybe he had hidradenitis by Urgent Care. He has needed one drained at times and self-drains them. He has had some anal leakage at times over the past few months/years. He notes that he does get constipated at times which he usually uses prune juice to treat. He then sometimes has loose stools, mucus in his stool. He eats a similar diet each day mostly. Sometimes he also feels like he has to urinate but he has very weak stream/not much comes out. He has noticed weaker urine stream as well- for maybe about 1 year. No erectile dysfunction, but he is getting some headache after intercourse. He drinks Gatorade Zero, coffee, and water. He feels like he gets winded at times with exertion like going up stairs. He was in really good shape 4-5 years ago, but now he isn't able to do that as much. Physical Exam Vitals: 05/08/23 1340 Temp: 36.3 C (97.4 F) Pulse: 78 SpO2: 92% BP: 194/104 BP Readings from Last 3 Encounters: 05/08/23 194/104 01/17/23 136/88 01/11/19 134/88 Wt Readings from Last 3 Encounters: 05/08/23 116.9 kg (257 lb 11.2 oz) 01/17/23 115.1 kg (253 lb 12.8 oz) 01/11/19 104.3 kg (230 lb) Physical exam: General: Well-Developed.Well appearing. No acute distress. HENT: Normocephalic. Atraumatic. Hearing normal. Eyes: EOMI. Sclera without erythema or icterus. No discharge. Pupils equal, round, reactive to light. Neck: No tracheal deviation. ROM intact. No stridor. . Cardiovascular: RRR. Normal S1/S2 noted. No murmur, rub or gallop appreciated. Pulmonary: No respiratory distress. No accessory muscle use. No adventitious sounds appreciated. Normal breath sounds. Abdominal: Bowel sounds heard throughout. No tenderness to palpation. No organomegally or masses noted. No distention. Neurologic: Alert. Oriented x 3. Appears stated age. CN 2-12 grossly intact. Skin: Warm and dry. Multiple healed/healing lesions under the axilla, in the groin, on the back. Purple color with slight induration. Psych: Mood and affect normal. I have reviewed the following results: Lipid Panel and BMP Assessment and Plan Hidradenitis suppurativa Start clindamycin solution for prevention. See Derm. - Clindamycin Phosphate 1 % External Solution; Apply topically to affected area 2 times a day. To affected area of skin. - DERMATOLOGY REFERRAL OP HTN, goal below 130/80 BP Severely elevated today. EKG NSR. Start Losartan-HCTZ TODAY. Labs and urine studies today. Needs to obtain home BP cuff. - COMPREHENSIVE METABOLIC PANEL; Future - TSH WITH FREE T4 IF INDICATED; Future - CBC WITH WBC DIFFERENTIAL AND ANEMIA REFLEX WORKUP; Future - URINALYSIS, REFLEX TO MICROSCOPIC; Future - ALBUMIN / CREATININE RATIO, URINE; Future - EKG Weak urine stream - PSA; Future Lipid screening - LIPID PANEL WITH DIRECT LDL IF TG IS HIGH; Future Need for hepatitis C screening test - HEPATITIS C ANTIBODY SCREEN WITH PROGRESSION TO HEPATITIS C RNA QUANTITATIVE; Future Special screening examination for viral disease - HIV ANTIGEN & ANTIBODY SCREEN W/ CONFIRMATION; Future Wrap-Up Check-out note: Derm 2 weeks Time: I spent a total of 40-54 minutes (exact time 45 mins) on the date of service in preparation, delivery, and documentation of the care provided to Shahram Dunlap excluding any time spent in the performance of separately billed services. Verbal consent received from patient for HIV screening. documented in this encounter Nursing Notes * CHRISS Stark - 05/08/2023 1:35 PM EDT He is here for a physical to reestablish care. 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 It came down after sitting. He get boils in his groin and his armpits that are painful. He is also having trouble with BM and urination. He is also having some sinus issues and breathing trouble. documented in this encounter Plan of Treatment Upcoming Encounters Date Type Specialty Care Team Description 12/22/2023 Office Visit Family Medicine Parris Munroe PA-C [address] [place] [address] [place] [phone] 03/10/2024 Office Visit Dermatology Rupa Nieto PA-C [address] [place] [address] [place] [phone] Pending Results Name Type Priority Associated Diagnoses Date /Time COMPREHENSIVE METABOLIC PANEL Lab Routine HTN, goal below 130/80 05/08/2023 2:42 PM EDT TSH WITH FREE T4 IF INDICATED Lab Routine HTN, goal below 130/80 05/08/2023 2:42 PM EDT CBC WITH WBC DIFFERENTIAL AND ANEMIA REFLEX WORKUP Lab Routine HTN, goal below 130/80 05/08/2023 2:42 PM EDT LIPID PANEL WITH DIRECT LDL IF TG IS HIGH Lab Routine Lipid screening 05/08/2023 2:42 PM EDT PSA Lab Routine Weak urine stream 05/08/2023 2:42 PM EDT URINALYSIS, REFLEX TO MICROSCOPIC Lab Routine HTN, goal below 130/80 05/08/2023 2:42 PM EDT ALBUMIN / CREATININE RATIO, URINE Lab Routine HTN, goal below 130/80 05/08/2023 2:42 PM EDT HEPATITIS C ANTIBODY SCREEN WITH PROGRESSION TO HEPATITIS C RNA QUANTITATIVE Lab Routine Need for hepatitis C screening test 05/08/2023 2:42 PM EDT HIV ANTIGEN & ANTIBODY SCREEN W/ CONFIRMATION Lab Routine Special screening examination for viral disease 05/08/2023 2:42 PM EDT Scheduled Orders Name Type Priority Associated Diagnoses Orde r Schedule COMPREHENSIVE METABOLIC PANEL Lab Routine HTN, goal below 130/80 Expected: 05/08/2023 (Approximate), Expires: 05/07/2024 TSH WITH FREE T4 IF INDICATED Lab Routine HTN, goal below 130/80 Expected: 05/08/2023 (Approximate), Expires: 05/07/2024 CBC WITH WBC DIFFERENTIAL AND ANEMIA REFLEX WORKUP Lab Routine HTN, goal below 130/80 Expected: 05/08/2023 (Approximate), Expires: 05/08/2024 LIPID PANEL WITH DIRECT LDL IF TG IS HIGH Lab Routine Lipid screening Expected: 05/08/2023, Expires: 05/08/2024 PSA Lab Routine Weak urine stream Expected: 05/08/2023 (Approximate), Expires: 05/07/2024 URINALYSIS, REFLEX TO MICROSCOPIC Lab Routine HTN, goal below 130/80 Expected: 05/08/2023, Expires: 05/08/2024 ALBUMIN / CREATININE RATIO, URINE Lab Routine HTN, goal below 130/80 Expected: 05/08/2023 (Approximate), Expires: 05/07/2024 EKG EKG Routine HTN, goal below 130/80 Ordered: 05/08/2023 HEPATITIS C ANTIBODY SCREEN WITH PROGRESSION TO HEPATITIS C RNA QUANTITATIVE Lab Routine Need for hepatitis C screening test Expected: 05/08/2023 (Approximate), Expires: 06/08/2024 HIV ANTIGEN & ANTIBODY SCREEN W/ CONFIRMATION Lab Routine Special screening examination for viral disease Expected: 05/08/2023, Expires: 05/08/2024 Scheduled Referrals Name Type Priority Associated Diagnoses Orde r Schedule DERMATOLOGY REFERRAL OP Referral Within 30 days (routine) Hidradenitis suppurativa Ordered: 05/08/2023 Health Maintenance Due Date Last Done Comments Hepatitis B (1 of 3 - 3-dose series) 1975 COVID-19 Vaccine (#1) 1975 Pneumococcal Vaccine: Pediatrics (0 to 5 Years) and At-Risk Patients (6 to 64 Years) (1 - PCV) 1981 HIV Screening 1990 Hepatitis C Screening 1993 DTaP,Tdap,and Td Vaccines (1 - Tdap) 1994 Depression Screening, Annual for Pts 12 and Over 08/18/2019 08/18/2018 Cologuard 2020 Colonoscopy 2020 Colorectal Cancer Screening 2020 Fecal Occult Blood Test 2020 Sigmoidoscopy 2020 Diabetes Screening 08/18/2021 08/18/2018, 06/03/2017 Lipid Panel 06/03/2022 06/03/2017 Influenza Vaccine (FLU shot) (#1) 2023 GARDASIL-HPV IMMUNIZATION SERIES Aged Out No longer eligible b ased on patient's age to complete this topic MENINGOCOCCAL (MENACTRA/MENVEO) Aged Out No longer eligible b ased on patient's age to complete this topic documented as of this encounter Medical Devices Not on filedocumented as of this encounter Visit Diagnoses Diagnosis Hidradenitis suppurativa- Primary Hidradenitis HTN, goal below 130/80 Unspecified essential hypertension Weak urine stream Slowing of urinary stream Lipid screening Screening for lipoid disorders Need for hepatitis C screening test Special screening examination for other specified viral diseases Special screening examination for viral disease Special screening examination for unspecified viral disease documented in this encounter
--- OUTSIDE RECORDS SUMMARY | 2023-09-18 12:38 | External Medical Summary ---
Author Name Unknown Address Unknown Organization [id number]:LABORATORY [facility] [place] - [address] [facility] [address] Laboratory Report Ordering Provider Test Date Status ODALYS BRITO 05/08/2023 14:42:23 Final Observation Date Value Abnormality Reference (Units ) Status Color of Urine by Auto 05/08/2023 14:42:23 Light Yellow Colorless, Light Yellow, Yellow, Dark Yellow Final Clarity, Urine 05/08/2023 14:42:23 Clear Clear Final Glucose [Mass/volume] in Urine by Automated test strip 05/08/2023 14:42:23 Negative Negative (mg/dL) Final Bilirubin.total [Presence] in Urine by Automated test strip 05/08/2023 14:42:23 Negative Negative Final Ketones [Mass/volume] in Urine by Automated test strip 05/08/2023 14:42:23 Negative Negative (mg/dL) Final Specific gravity, Urine 05/08/2023 14:42:23 1.022 1.003-1.030 Final Hemoglobin [Presence] in Urine by Automated test strip 05/08/2023 14:42:23 Negative Negative Final pH, Urine 05/08/2023 14:42:23 6.0 5.0-7.5 (Units) Final Protein [Mass/volume] in Urine by Automated test strip 05/08/2023 14:42:23 Negative Negative (mg/dL) Final Urobilinogen [Mass/volume] in Urine by Automated test strip 05/08/2023 14:42:23 Normal Normal (mg/dL) Final Nitrite [Presence] in Urine by Automated test strip 05/08/2023 14:42:23 Negative Negative Final Leukocyte esterase [Presence] in Urine by Automated test strip 05/08/2023 14:42:23 Negative Negative Final Annotation Comment 05/08/2023 14:42:23 Final Screen negative - Microscopi c not performed. Performing Location [facility] - [address] [facility] [address]
--- OUTSIDE RECORDS SUMMARY | 2023-09-18 12:38 | External Medical Summary ---
Author Name Unknown Address Unknown Organization [id number]:[facility] [place] [address] [facility] [address] Laboratory Report Ordering Provider Test Date Status ODALYS BRITO 05/08/2023 14:42:23 Final Observation Date Value Abnormality Reference (Units ) Status SYNC LEUKOCYTES IN BLOOD BY AUTOMATED COUNT 05/08/2023 14:42:23 10.44 4.00-10.80 (K/uL) Final Segs 05/08/2023 14:42:23 51.9 40.0-75.0 (%) Final Lymphs % 05/08/2023 14:42:23 35.2 18.0-42.0 (%) Final Monos 05/08/2023 14:42:23 8.0 1.0-11.0 (%) Final Eosinophils 05/08/2023 14:42:23 3.3 0.0-6.0 (%) Final Basos 05/08/2023 14:42:23 1.0 0.0-2.0 (%) Final Immature Granulocyte, Percent 05/08/2023 14:42:23 0.6 0.0-2.0 (%) Final Absolute Segs 05/08/2023 14:42:23 5.43 1.80-7.70 (K/uL) Final Lymphs, absolute 05/08/2023 14:42:23 3.68 1.00-4.80 (K/ul) Final Monos, Abs 05/08/2023 14:42:23 0.83 0.00-1.10 (K/uL) Final Eos, Abs 05/08/2023 14:42:23 0.34 0.00-0.70 (K/uL) Final Basos, Abs 05/08/2023 14:42:23 0.10 0.00-0.20 (K/uL) Final Immature Granulocytes, Number 05/08/2023 14:42:23 0.06 0.00-0.20 (K/uL) Final Performing Location [facility] [place] [address] [facility] [address]
--- OUTSIDE RECORDS SUMMARY | 2023-09-18 12:38 | External Medical Summary ---
Author Name Unknown Address Unknown Organization [id number]:[place] [place] [address] [place] [address] Laboratory Report Ordering Provider Test Date Status ODALYS BRITO 05/08/2023 14:42:23 Final Observation Date Value Abnormality Reference (Units ) Status LDL, (direct) 05/08/2023 14:42:23 158 Above high sergo l <=129 (mg/dL) Final LDL Cholesterol Reference Ra nges (mg/dL):
<70 Target level for high risk ASCVD patient
<100 Optimal for general population
100-129 Near optimal for general population
130-159 Borderline high
160-189 High
>=190 Very high Performing Location [facility] - [address] [place] [address]
--- OUTSIDE RECORDS SUMMARY | 2023-09-18 12:38 | External Medical Summary | Summary of Care ---
Author Name Unknown Organization [facility] Address [address] [address] Phone [phone] Care Team Providers Care Blow Up Operator Name Role Phone Unavailable Primary Care Provider Unavailabl e Reason for Visit * Reason Comments Outpatient Testing Encounter Details Date Type Department Care Team Description 05/30/2023 Laboratory Laboratory [address] [place] [id number] [place], Lab [address] [place] [address] HTN, goal below 130/80 Allergies No known active allergiesdocumented as of this encounter (statuses as of 05/30/2023) Medications Medication Sig Dispensed Refills Start Date End Date Status Clindamycin Phosphate 1 % External SolutionIndications: Hidradenitis suppurativa Apply topically to affected area 2 times a day. To affected area of skin. 60 mL 5 05/08/2023 Active Losartan Potassium-HCTZ 50-12.5 MG Oral Tablet (Hyzaar) Take 1 Tablet by mouth in the morning. 30 Tablet 5 05/08/2023 Active Atorvastatin Calcium 20 MG Oral Tablet (Lipitor)Indications :Hyperlipidemia with target LDL less than 100 Take 1 Tablet by mouth in the morning. 30 Tablet 5 05/09/2023 Active Hospital, Clinic, or Other Facility Administered Medication Ordered Dose Route Frequency Start Date End Date Status albuterol sulfate (PROVENTIL) (2.5 MG/3ML) 0.083% inhalation solution 2.5 mgIndications:History of tobacco use,Cough,SOB (shortness of breath) 2.5 mg NEBULIZER Q4H PRN 08/18/2018 Act yinka documented as of this encounter (statuses as of 05/30/2023) Active Problems Problem Noted Date Displacement of lumbar intervertebral di sc without myelopathy 11/04/2008 ADVANCE DIRECTIVE INFORMATION 10/15/2008 Overview: Yes, Patient instructed to provide copy of advance directive for provider to review and to be scanned into Electronic Medical Record History of tobacco use 08/26/2008 documented as of this encounter (statuses as of 05/30/2023) Social History Tobacco Use Types Packs/Day Years [...] Office Visit Family Medicine Parris Munroe PA-C [address] [place] [address] [place] [phone] 03/10/2024 Office Visit Dermatology Rupa Nieto PA-C [address] [place] [address] [place] [phone] Pending Results Name Type Priority Associated Diagnoses Date /Time BASIC METABOLIC PANEL Lab Routine HTN, goal below 130/80 05/30/2023 1:25 PM EDT Health Maintenance Due Date Last [...] Influenza Vaccine (FLU shot) (#1) 2023 Depression Screening, Annual for Pts 12 and Over 05/08/2024 05/08/2023 Diabetes Screening 05/08/2026 05/08/2023, 08/18/2018, 06/03/2017 Lipid Panel 05/08/2028 05/08/2023, 06/03/2017 Hepatitis C Screening Completed 05/08/2023 , 05/08/2023, 05/08/2023 GARDASIL-HPV IMMUNIZATION SERIES Aged Out No longer eligible b ased on patient's age to complete this topic MENINGOCOCCAL (MENACTRA/MENVEO) Aged Out No longer eligible b ased on patient's age to complete this topic documented as of this encounter Medical Devices Not on filedocumented as of this encounter Visit Diagnoses Diagnosis HTN, goal below 130/80 Unspecified essential hypertension documented in this encounter
--- OUTSIDE RECORDS SUMMARY | 2023-09-18 12:38 | External Medical Summary | Summary of Care ---
Author Name Unknown Organization [facility] Address [address] [facility] [place] [address] Phone [phone] Care Team Providers Care Corn Grower Name Role Phone Unavailable Primary Care Provider Unavailabl e Reason for Visit * Reason Comments Outpatient Testing Encounter Details Date Type Department Care Team Description 07/14/2023 Laboratory Laboratory [address] [place] [id number] [place], Lab [address] [place] [address] HTN, goal below 130/80 Allergies No known active allergiesdocumented as of this encounter (statuses as of 07/14/2023) Medications Medication Sig Dispensed Refills Start Date [...] as of this encounter (statuses as of 07/14/2023) Active Problems Problem Noted Date HTN, goal below 130/80 06/02/2023 Displacement of lumbar intervertebral di sc without myelopathy 11/04/2008 ADVANCE DIRECTIVE INFORMATION 10/15/2008 Overview: Yes, Patient instructed to provide copy of advance directive for provider to review and to be scanned into Electronic Medical Record History of tobacco use 08/26/2008 documented as of this encounter (statuses as of 07/14/2023) Social History Tobacco Use Types Packs/Day Years [...] Encounters Date Type Specialty Care Team Description 07/14/2023 Nurse Only Ancillary Nurse Geoff [address] [place] [phone] Arrived 12/22/2023 Office Visit Family Medicine Parris Munroe PA-C [address] [place] [address] [place] [phone] 03/10/2024 Office Visit Dermatology Rupa Nieto PA-C [address] [place] [address] [place] [phone] Pending Results Name Type Priority Associated Diagnoses Date /Time BASIC METABOLIC PANEL Lab Routine HTN, goal below 130/80 07/14/2023 7:47 AM EDT Health Maintenance Due Date Last [...] (#1) 2023 Depression Screening 05/08/2024 05/08/2023 GFR 05/30/2024 05/30/2023, 07/04/2023, 08/18/2018 Albumin/Creatinine Ratio 05/08/2026 05/08/2023 Diabetes Screening 05/30/2026 05/30/2023, 0 05/08/2023, 08/18/2018, Additional history exists Lipid Panel 05/08/2028 05/08/2023, 06/03/2017 Hepatitis C [...]
--- OUTSIDE RECORDS SUMMARY | 2023-09-18 12:38 | External Medical Summary ---
Author Name Unknown Address Unknown Organization [id number]:[facility]ATORY [facility] - [address] [place] [address] Laboratory Report Ordering Provider Test Date Status ODALYS BRITO 05/08/2023 14:42:23 Final Observation Date Value Abnormality Reference (Units ) Status Hep C Ab 05/08/2023 14:42:23 Negative Negative Final Further HCV quantitative lucia ting not performed per protocol. Performing Location [facility] - [address] [place] [address]
--- OUTSIDE RECORDS SUMMARY | 2023-09-18 12:38 | External Medical Summary | Summary of Care ---
Author Name Unknown Organization [facility] Address [address] [facility] [place] [address] Phone [phone] Care Team Providers Care Ramp Jockey Name Role Phone Unavailable Primary Care Provider Unavailabl e Reason for Visit * Reason Comments Outpatient Testing Encounter Details Date Type Department Care Team Description 05/30/2023 Laboratory Laboratory [address] [place] [address] [place], Lab [address] [place] [address] HTN, goal below 130/80* Allergies No known active allergiesdocumented as of this encounter (statuses as of 06/02/2023) Medications Medication Sig Dispensed Refills Start Date End Date Status Clindamycin Phosphate 1 % External SolutionIndicatio ns:Hidradenitis suppurativa Apply topically to affected area 2 times a day. To affected area of skin. 60 mL 05/08/2023 Active Atorvastatin Calcium 20 MG Oral Tablet (Lipitor)Indicati ons:Hyperlipidemi a with target LDL less than 100 Take 1 Tablet by mouth in the morning. 30 Tablet 5 05/09/2023 Active Losartan Potassium 50 MG Oral Tablet (Cozaar)Indicatio ns:HTN, goal below 130/80 Take 1 Tablet by mouth in the morning. 30 Tablet 06/02/2023 Active hydroCHLOROthiazi de 25 MG Oral Tablet (Hydrodiuril)Irma cations:HTN, goal below 130/80 Take 1 Tablet by mouth in the morning. 30 Tablet 06/02/2023 Active Losartan Potassium-HCTZ 50-12.5 MG Oral Tablet (Hyzaar) Take 1 Tablet by mouth in the morning. 30 Tablet 5 05/08/2023 06/02/2023 Discontinued (Medication/ Dose Changed) Hospital, Clinic, or Other Facility Administered Medication Ordered Dose Route Frequency Start Date End Date Status albuterol sulfate (PROVENTIL) (2.5 MG/3ML) 0.083% inhalation solution 2.5 mgIndications:History of tobacco use,Cough,SOB (shortness of breath) 2.5 mg NEBULIZER Q4H PRN 08/18/2018 Act yinka documented as of this encounter (statuses as of 06/02/2023) Active Problems Problem Noted Date Displacement of lumbar intervertebral di sc without myelopathy 11/04/2008 ADVANCE DIRECTIVE INFORMATION 10/15/2008 Overview: Yes, Patient instructed to provide copy of advance directive for provider to review and to be scanned into Electronic Medical Record History of tobacco use 08/26/2008 documented as of this encounter (statuses as of 06/02/2023) Social History Tobacco Use Types Packs/Day Years [...] as of this encounter Miscellaneous Notes * Addendum Note - Parris Mororw PA-C - 06/02/2023 7:12 AM EDTAddended by: PARRIS MORROW on: 06/02/2023 07:12 AM Modules accepted: Orders documented in this encounter Plan of Treatment Upcoming Encounters Date Type Specialty Care Team Description 12/22/2023 Office Visit Family Medicine Parris Morrow PA-C [address] [place] [address] [place] [phone] 03/10/2024 Office Visit Dermatology Rupa Nieto PA-C [address] [place] [address] [place] [phone] Health Maintenance Due Date Last Done Comments [...] 12 and Over 05/08/2024 05/08/2023 Diabetes Screening 05/30/2026 05/30/2023, 0 05/08/2023, [...] Procedure Name Priority Date/Time Associated Diagnosis Comments BASIC METABOLIC PANEL Routine 05/30/2023 1:25 PM EDT HTN, goal below 130/80 documented in this encounter Results * BASIC METABOLIC PANEL (05/30/2023 1:25 PM EDT) BUN 15 6 - 20 mg/dL 05/30/2023 9:54 PM EDT [facility] Creatinine 1.0 0.6 - 1.2 mg/dL 05/30/2023 9:54 PM EDT [facility] Estimated Glomerular Filtration Rate >90 >=60 mL/min 05/30/2023 9:54 PM EDT [facility] Comment:eGFR is calculated b ased on the CKD-EPI 2020 equation Sodium 139 135 - 146 mmol/L 05/30/2023 9:54 PM EDT [facility] Potassium 4.3 3.5 - 5.1 mmol/L 05/30/2023 9:54 PM EDT [facility] Chloride 100 98 - 107 mmol/L 05/30/2023 9:54 PM EDT [facility] CO2 26 22 - 32 mmol/L 05/30/2023 9:54 PM EDT [facility] Anion Gap 13 7 - 15 mmol/L 05/30/2023 9:54 PM EDT [facility] Glucose 93 70 - 120 mg/dL 05/30/2023 9:54 PM EDT [facility] Calcium 9.6 8.4 - 10.2 mg/dL 05/30/2023 9:54 PM EDT [facility] Blood Venous blood specimen / Unknown Venipuncture / Unknown 05/30/2023 1:25 PM EDT 05/30/2023 1:25 PM EDT Parris Morrow PA-C LAB BLOOD ORDERABLE S LABORATORY [facility] [address] [place] [address] documented in this encounter Visit Diagnoses Diagnosis HTN, goal below 130/80- Primary Unspecified essential hypertension documented in this encounter
--- OUTSIDE RECORDS SUMMARY | 2023-09-18 12:38 | External Medical Summary | Summary of Care ---
Author Name Unknown Organization [facility] Address [address] [place] [address] Phone [phone] Care Team Providers Care Direct Marketing Representative Name Role Phone Unavailable Primary Care Provider Unavailabl e Reason for Visit * Reason Onset Date Comments MyCode Consent 08/04/2023 Encounter Details Date Type Department Care Team Description 08/04/2023 Orders Only Outcomes Research Department [address] [place], [place] [id number] Tracy Hollingsworth CHRA MyCode Research Other*[id number]* Allergies No known active allergiesdocumented as of [...] on file documented as of this encounter Progress Notes * CHANDLER Romero - 08/04/2023 1:22 PM EDT MyCode Consent Documentation Shahram Dunlap provided consent/authorization to participate in the MyCode Project. documented in this encounter Plan of Treatment Upcoming Encounters Date Type Specialty Care Team Description 03/10/2024 Office Visit Dermatology Rupa Nieto PA-C [address] [place] [address] [place] [address] Scheduled Orders Name Type Priority Associated Diagnoses Orde r Schedule MYCODE INITIAL ADULT Lab Routine MyCode Research Other*[id number] Expected: 08/04/2023 (Approximate), Expires: 08/23/2024 Health Maintenance Due Date Last Done Comments [...] as of this encounter Visit Diagnoses Diagnosis MyCode Research Other*[id number]- Primary documented in this encounter
--- OUTSIDE RECORDS SUMMARY | 2023-09-18 12:38 | External Medical Summary | Summary of Care ---
Author Name Unknown Organization [facility] [address] [facility] [address] Phone [phone] Care Team Providers Care Worship Leader Name Role Phone Unavailable Primary Care Provider Unavailabl e Reason for Visit * Reason Comments Outpatient Testing Encounter Details Date Type Department Care Team Description 05/08/2023 Laboratory Laboratory [address] [place] [address] [facility] Lab [address] [place] [address] HTN, goal below 130/80; Lipid screening; Weak urine stream; Need for hepatitis C screening test; Special [...] the morning. 30 Tablet 5 05/08/2023 Active Hospital, Clinic, or Other Facility Administered [...] Office Visit Family Medicine Parris Munroe PA-C [address] [place] [address] [place] [phone] 03/10/2024 Office Visit Dermatology Rupa Nieto PA-C [address] [place] [address] [place] [phone] Pending Results Name Type Priority Associated Diagnoses [...] for viral disease 05/08/2023 2:42 PM EDT ANEMIA CBC Lab Routine HTN, goal below 130/80 05/08/2023 2:42 PM EDT DIFFERENTIAL, AUTOMATED Lab Routine HTN, goal below 130/80 05/08/2023 2:42 PM EDT ANEMIA REFLEX CHEMISTRY HOLD Lab Routine HTN, goal below 130/80 05/08/2023 2:42 PM EDT HEPATITIS C ANTIBODY Lab Routine Need for hepatitis C screening test 05/08/2023 2:42 PM EDT HEPATITIS C RNA ADD ON Lab Routine Need for hepatitis C screening test 05/08/2023 2:42 PM EDT Health Maintenance Due Date Last [...] HTN, goal below 130/80 Unspecified essential hypertension Lipid screening Screening for lipoid disorders Weak urine stream Slowing of urinary stream Need for hepatitis C screening test Special screening examination for other specified viral diseases Special screening examination for viral disease Special screening examination for unspecified viral disease documented in this encounter
--- OUTSIDE RECORDS SUMMARY | 2023-09-18 12:38 | External Medical Summary ---
Author Name Unknown Address Unknown Organization [id number]:LABORATORY [facility] [place] - [address] [facility] [address] [place] [address] Laboratory Report Ordering Provider Test Date Status ODALYS BRITO 05/08/2023 14:42:23 Final Observation Date Value Abnormality Reference (Units ) Status Triglyceride 05/08/2023 14:42:23 401 Above high normal <=174 (mg/dL) Final Triglyceride Reference Range s (mg/dL):
<150 Acceptable
150-174 Borderline high
175-499 High
>=500 Very high Cholesterol 05/08/2023 14:42:23 257 Above high normal <200 (mg/dL) Final Total Cholesterol Reference Ranges (mg/dL):
<200 Desirable
200-239 Borderline high
>=240 High HDL 05/08/2023 14:42:23 38 Below low normal >39 (mg/dL) Final HDL Cholesterol Reference Ra nges (mg/dL):
>=60 High (Desirable)
<50 Low (Undesirable) For Females
<40 Low (Undesirable) For Males NON-HDL CHOLESTEROL 05/08/2023 14:42:23 219 Above high normal <=159 (mg/dL) Final Non-HDL Cholesterol Referenc e Range (mg/dL):
<100 Target level for high risk ASCVD patient
<130 Optimal for general population
130-159 Near optimal for general population
160-189 Borderline High
190-219 High
>=220 Very High Performing Location [facility] - [address] [place] [address]
--- OUTSIDE RECORDS SUMMARY | 2023-09-18 12:38 | External Medical Summary ---
Author Name Unknown Address Unknown Organization [id number]:LABORATORY [facility] [place] - [address] [address] Laboratory Report Ordering Provider Test Date Status ODALYS BRITO 07/14/2023 07:47:41 Final Observation Date Value Abnormality Reference (Units ) Status BUN 07/14/2023 07:47:41 18 6-20 (mg/dL) Final Creatinine 07/14/2023 07:47:41 0.9 0.6-1.2 (mg/dL) Final Glomerular filtration rate/1.73 sq M.predicted [Volume Rate/Area] in Serum, Plasma or Blood by Creatinine-based formula (CKD-EPI) 07/14/2023 07:47:41 >90 >=60 (mL/min) Final eGFR is calculated based on the CKD-EPI 2020 equation SODIUM 07/14/2023 07:47:41 138 135-146 (m mol/L) Final Potassium 07/14/2023 07:47:41 3.8 3.5-5.1 (m mol/L) Final Cl 07/14/2023 07:47:41 102 98-107 (mm ol/L) Final CO2 07/14/2023 07:47:41 24 22-32 (mmo l/L) Final Anion gap 07/14/2023 07:47:41 12 7-15 (mmol /L) Final Glucose 07/14/2023 07:47:41 173 Above high normal 70 -120 (mg/dL) Final Calcium 07/14/2023 07:47:41 9.5 8.4-10.2 ( mg/dL) Final Performing Location LABORATORY [facility] - [address] [place] [address]
--- OUTSIDE RECORDS SUMMARY | 2023-09-18 12:38 | External Medical Summary ---
Author Name Unknown Address Unknown Organization K01:LABORATORY [facility] [place] - [address] [place] [address] Laboratory Report Ordering Provider Test Date Status ODALYS BRITO 05/08/2023 14:42:23 Final Normal: <30 mg/g creatinine< br/>High: 30-300 mg/g creatinine
Very High: >300 mg/g creatinine
Nephrotic: >2200 mg/g creatinine Observation Date Value Abnormality Reference (Units ) Status Albumin, Urine 05/08/2023 14:42:23 <1.20 (mg/dL) Final Creatinine, Urine 05/08/2023 14:42:23 148 (mg/dL) Final Albumin/Creatinine [Mass Ratio] in Urine 05/08/2023 14:42:23 <8 <30 (mg/g Creat) Final Performing Location LABORATORY [facility] [place] - [address] [place] [address]
--- OUTSIDE RECORDS SUMMARY | 2023-09-18 12:38 | External Medical Summary ---
Author Name Unknown Address Unknown Organization [id number]:[facility] [place] [facility] [address] [place] [address] Laboratory Report Ordering Provider Test Date Status ODALYS BRITO 05/08/2023 14:42:23 Final Observation Date Value Abnormality Reference (Units ) Status WBC, Total 05/08/2023 14:42:23 10.44 4.00-10.8 0 (K/uL) Final RBC 05/08/2023 14:42:23 5.42 4.50-5.25 (M/uL) Final Hemoglobin 05/08/2023 14:42:23 16.8 14.0-16.8 (g/dL) Final Anemia reflex testing trigge rs on a HGB < 12.0 for Females and HGB < 13.0 for Males in accordance with the WHO Anemia Guidelines
Anemia reflex testing triggers on a HGB < 12.0 for Females and HGB < 13.0 for Males in accordance with the WHO Anemia Guidelines HCT 05/08/2023 14:42:23 49.1 Above hi gh normal 40.0-48.4 (%) Final MCV 05/08/2023 14:42:23 90.6 82.0-99.5 (fL) Final MCH 05/08/2023 14:42:23 31.0 27.0-34.0 (pg) Final MCHC 05/08/2023 14:42:23 34.2 32.0-36.0 (g/dL) Final RDW 05/08/2023 14:42:23 13.0 11.5-15.5 (%) Final Platelets 05/08/2023 14:42:23 232 140-400 (K /uL) Final MPV 05/08/2023 14:42:23 10.2 6.6-11.1 ( fL) Final Nucleated erythrocytes/100 leukocytes [Ratio] in Blood by Automated count 05/08/2023 14:42:23 0 <=0 (/100 WBCs) Final Performing Location LABORATORY [facility] - [address] [facility] [address]
--- OUTSIDE RECORDS SUMMARY | 2023-09-18 12:38 | External Medical Summary ---
Author Name Unknown Address Unknown Organization K01:LABORATORY [facility] [place] - [facility] [address] [facility] [address] [facility] [address] Laboratory Report Ordering Provider Test Date Status ODALYS BRITO 05/08/2023 14:42:23 Final Observation Date Value Abnormality Reference (Units ) Status HIV 1+2 Ab+HIV1 p24 Ag [Presence] in Serum or Plasma by Immunoassay 05/08/2023 14:42:23 Negative Negative Final Negative HIV-1/2 antigen and antibody screening tset results usually indicate the absence of HIV-1 and HIV-2 infection. However, such negative results do not rule-out acute HIV infection. If acute HIV-1 infection is highly suspected, it is recommended that a specimen be submitted for detection of HIV-1 RNA. Performing Location LABORATORY [facility] - [address] [facility] [address]
--- OUTSIDE RECORDS SUMMARY | 2023-09-18 12:38 | External Medical Summary | Summary of Care ---
Author Name Unknown Organization [facility] Address [address] [facility] [place] [address] Phone [phone] Care Team Providers Care Field Captain Name Role Phone Unavailable Primary Care Provider Unavailabl e Reason for Visit * Reason Comments Outpatient Testing Encounter Details Date Type Department Care Team Description 07/14/2023 Laboratory Laboratory [address] [place] [address] [place], Lab [address] [place] [address] HTN, goal below 130/80 Allergies No known active allergiesdocumented as of this encounter (statuses as of 07/16/2023) Medications Medication Sig Dispensed Refills Start Date [...] as of this encounter (statuses as of 07/16/2023) Active Problems Problem Noted Date HTN, goal below 130/80 06/02/2023 Displacement of lumbar intervertebral di sc without myelopathy 11/04/2008 ADVANCE DIRECTIVE INFORMATION 10/15/2008 Overview: Yes, Patient instructed to provide copy of advance directive for provider to review and to be scanned into Electronic Medical Record History of tobacco use 08/26/2008 documented as of this encounter (statuses as of 07/16/2023) Social History Tobacco Use Types Packs/Day Years [...] Office Visit Family Medicine Parris Munroe PA-C [address] [place] [address] [place] [phone] 03/10/2024 Office Visit Dermatology Rupa Nieto PA-C [address] [place] [address] [place] [address] Health Maintenance Due Date Last Done Comments [...] Associated Diagnosis Comments BASIC METABOLIC PANEL Routine 07/14/2023 7:47 AM EDT HTN, goal below 130/80 documented in this encounter Results * (ABNORMAL) BASIC METABOLIC PANEL (07/14/2023 7:47 AM EDT) BUN 18 6 - 20 mg/dL 07/14/2023 4:33 PM EDT [facility] Creatinine 0.9 0.6 - 1.2 mg/dL 07/14/2023 4:33 PM EDT [facility] Estimated Glomerular Filtration Rate >90 >=60 mL/min 07/14/2023 4:33 PM EDT [facility] Comment:eGFR is calculated b ased on the CKD-EPI 2020 equation Sodium 138 135 - 146 mmol/L 07/14/2023 4:33 PM EDT [facility] Potassium 3.8 3.5 - 5.1 mmol/L 07/14/2023 4:33 PM EDT [facility] Chloride 102 98 - 107 mmol/L 07/14/2023 4:33 PM EDT [facility] CO2 24 22 - 32 mmol/L 07/14/2023 4:33 PM EDT [facility] Anion Gap 12 7 - 15 mmol/L 07/14/2023 4:33 PM EDT [facility] Glucose 173(H) 70 - 120 mg/dL 07/14/2023 4:33 PM EDT [facility] Calcium 9.5 8.4 - 10.2 mg/dL 07/14/2023 4:33 PM EDT [facility] Blood Venous blood specimen / Unknown Venipuncture / Unknown 07/14/2023 7:47 AM EDT 07/14/2023 7:47 AM EDT Parris Munroe PA-C LAB BLOOD ORDERABLE S LABORATORY [facility] [address] [place] [facility] [place] [address] documented in this encounter Visit Diagnoses Diagnosis HTN, goal below 130/80 Unspecified essential hypertension documented in this encounter
--- OUTSIDE RECORDS SUMMARY | 2023-09-18 12:38 | External Medical Summary ---
Author Name Unknown Address Unknown Organization K01:[facility] [address] [facility] [address] [facility] [place] [address] Laboratory Report Ordering Provider Test Date Status ODALYS BRITO 05/30/2023 13:25:26 Final Observation Date Value Abnormality Reference (Units ) Status BUN 05/30/2023 13:25:26 15 6-20 (mg/dL) Final Creatinine 05/30/2023 13:25:26 1.0 0.6-1.2 (mg/dL) Final Glomerular filtration rate/1.73 sq M.predicted [Volume Rate/Area] in Serum, Plasma or Blood by Creatinine-based formula (CKD-EPI) 05/30/2023 13:25:26 >90 >=60 (mL/min) Final eGFR is calculated based on the CKD-EPI 2020 equation SODIUM 05/30/2023 13:25:26 139 135-146 (m mol/L) Final Potassium 05/30/2023 13:25:26 4.3 3.5-5.1 (m mol/L) Final Cl 05/30/2023 13:25:26 100 98-107 (mm ol/L) Final CO2 05/30/2023 13:25:26 26 22-32 (mmo l/L) Final Anion gap 05/30/2023 13:25:26 13 7-15 (mmol /L) Final Glucose 05/30/2023 13:25:26 93 70-120 (mg /dL) Final Calcium 05/30/2023 13:25:26 9.6 8.4-10.2 ( mg/dL) Final Performing Location [facility] [place] [address] [place] [address]
--- OUTSIDE RECORDS SUMMARY | 2023-09-18 12:38 | External Medical Summary | Summary of Care ---
Author Name Unknown Organization [facility] Address [address] [facility] [place] [address] Phone [phone] Care Team Providers Care Flour Tester Name Role Phone Unavailable Primary Care Provider Unavailabl e Encounter Details Date Type Department Care Team Description 07/14/2023 Nurse Only Ancillary [address] [place] [address] [place], Nurse [address] [place] [address] Allergies No known active allergiesdocumented as of [...] Sign Reading Time Taken Comments Blood Pressure 118/70 07/14/2023 8:07 AM EDT Pulse 68 07/14/2023 8:07 AM EDT Temperature - - Respiratory Rate - - Oxygen Saturation - - Inhaled Oxygen Concentration - - Weight - - Height - - Body Mass Index - - documented in this encounter Plan of Treatment Upcoming Encounters Date Type Specialty Care Team Description 12/22/2023 Office Visit Family Medicine Parris Munroe PA-C [address] [place] [address] [place] [phone] 03/10/2024 Office Visit Dermatology Rupa Nieto PA-C [address] [place] [address] [place] [phone] Health Maintenance Due Date Last Done Comments [...] Depression Screening 05/08/2024 05/08/2023 GFR 05/30/2024 05/30/2023, 07/0 04/2023, 08/18/2018 Albumin/Creatinine Ratio 05/08/2026 05/08/2023 Diabetes Screening [...]
--- OUTSIDE RECORDS SUMMARY | 2023-09-18 12:38 | External Medical Summary ---
Author Name Unknown Address Unknown Organization K01:[facility] - [address] [place] [address] Laboratory Report Ordering Provider Test Date Status ODALYS BRITO 05/08/2023 14:42:23 Final Observation Date Value Abnormality Reference (Units ) Status PSA 05/08/2023 14:42:23 0.35 <2.00 (ng/ mL) Final Performing Location [facility] - [address] [place] [address]
--- OUTSIDE RECORDS SUMMARY | 2023-09-18 12:38 | External Medical Summary | Summary of Care ---
Author Name Unknown Organization [facility] Address [address] [place] [address] Phone [phone] Care Team Providers Care Partition Setter Name Role Phone Unavailable Primary Care Provider Unavailabl e Reason for Visit * Reason Comments Follow Up Encounter Details Date Type Department Care Team Description 05/30/2023 Office Visit Family Medicine [address] [place] [address] Parris Munroe PA-C [address] [place] [address] [place] [address] HTN, goal below 130/80* [...] smoking 1.5 per day 12 years now 11/04 PPD 05/08/23 Alcohol Use Standard Drinks/Week Comments Yes 0 (1 standard drink = 0.6 oz pur e alcohol) weekends Sex Assigned at Date Recorded Not on file Job Start Date Occupation Industry Not on file Not on file Not on file documented as of this encounter Last Filed Vital Signs Vital Sign Reading Time Taken Comments Blood Pressure 138/74 05/30/2023 12:52 PM EDT Pulse 76 05/30/2023 12:52 PM EDT Temperature 36.2 C (97.2 F) 05/30/2023 12:52 PM E DT Respiratory Rate - - Oxygen Saturation 93% 05/30/2023 12:52 PM EDT Inhaled Oxygen Concentration - - Weight 111 kg (244 lb 11.2 oz) 05/30/2023 12:52 PM EDT Height - - Body Mass Index 36.14 01/17/2023 3:15 PM EDT documented in this encounter Progress Notes * Parris Munroe PA-C - 05/30/2023 12:59 PM EDT Images from the original note were not included. History of Present Illness Shahram Dunlap is a 48 year old male that presents for Follow Up Nursing Notes: Lauren Rasmussen LPN 05/30/23 1301 Signed Follow up, BP. Pt brought a list of recent BP readings. Pt states he's been feeling "a lot better". HPI: Shahram Dunlap is a 48 year old male presenting to the office today for BP follow up. He has noticed significant improvement. He is feeling much better. He hasn't had any further chest pressure or breathing difficulty. He and his have been working on their diet as well. He has lost 13 lbs as well. He is really pleased with how he feels and also his BP readings. Home readings the past few days: 133/92 147/90 136/78 137/75 142/94 137/101 He was also able to get Clindamycin solution without problems- this has been helpful. Current Outpatient Medications Medication Instructions atorvaSTATin (LIPITOR) 20 mg, Oral, Daily(AM) Clindamycin Phosphate 1 % External Solution Topical, BID(AM/PM), To affected area of skin. Losartan Potassium-HCTZ 50-12.5 MG Oral Tablet (Hyzaar) 1 Tablet, Oral, Daily(AM) Med list reviewed by me today. Physical Exam Vitals: 05/30/23 1252 Temp: 36.2 C (97.2 F) Pulse: 76 SpO2: 93% BP: 138/74 BP Readings from Last 3 Encounters: 05/30/23 138/74 05/08/23 194/104 01/17/23 136/88 Wt Readings from Last 3 Encounters: 05/30/23 111 kg (244 lb 11.2 oz) 05/08/23 116.9 kg (257 lb 11.2 oz) 01/17/23 115.1 kg (253 lb 12.8 oz) Physical exam: General: Well-Developed. Well appearing. No acute distress. HENT: Normocephalic. Atraumatic. Hearing normal. I have reviewed the following results: TSH, CBC and BMP , Lipids Assessment and Plan HTN, goal below 130/80 Recheck labs today. Pending BMP, will likely continue Losartan but increase HCTZ to 25 mg daily. Heagreed. Will separate into 2 meds pending labs. Keep up the good work with dietary and lifestyle changes! - BASIC METABOLIC PANEL; Future Will then have him send updated readings in 1 month. Wrap-Up F/U as scheduled or sooner PRN documented in this encounter Nursing Notes * Lauren Rasmussen LPN - 05/30/2023 12:51 PM EDT Follow up, BP. Pt brought a list of recent BP readings. Pt states he's been feeling "a lot better". documented in this encounter Plan of Treatment Upcoming Encounters Date Type Specialty Care Team Description 12/22/2023 Office Visit Family Medicine Parris Munroe, KANDACE [address] [place] [address] [place] [phone] 03/10/2024 Office Visit Dermatology Rupa Nieto PA-C [address] [place] [address] [place] [phone] Pending Results Name Type Priority Associated Diagnoses Date /Time BASIC METABOLIC PANEL Lab Routine HTN, goal below 130/80 05/30/2023 1:25 PM EDT Scheduled Orders Name Type Priority Associated Diagnoses Orde r Schedule BASIC METABOLIC PANEL Lab Routine HTN, goal below 130/80 Expected: 05/30/2023 (Approximate), Expires: 05/29/2024 Health Maintenance Due Date Last Done Comments [...]
--- OUTSIDE RECORDS SUMMARY | 2023-09-18 12:38 | External Medical Summary | Summary of Care ---
Author Name Unknown Organization [facility] Address [address] [facility] [place] [address] Phone [phone] Care Team Providers Care Fire Officer Name Role Phone Unavailable Primary Care Provider Unavailabl e Reason for Visit * Reason Onset Date Comments Medication Refill 06/30/2023 Encounter Details Date Type Department Care Team Description 06/30/2023 Refill Family Medicine [address] [place] [id number] Alisha Morrow PA-Charly [address] [place] [address] AMANDA Danielson [phone] HTN, goal below 130/80 Allergies No known active allergiesdocumented as of this encounter (statuses as of 06/30/2023) Medications Medication Sig Dispensed Refills Start Date [...] the morning. 90 Tablet 3 06/30/2023 Active Losartan Potassium 50 MG Oral Tablet (Cozaar)Indicatio ns:HTN, goal below 130/80 Take 1 Tablet by mouth in the morning. 30 Tablet 5 06/02/2023 06/30/2023 Discontinued (Refill) hydroCHLOROthiazi de 25 MG Oral Tablet (Hydrodiuril)Irma cations:HTN, goal below 130/80 Take 1 Tablet by mouth in the morning. 30 Tablet 5 06/02/2023 06/30/2023 Discontinued (Refill) Hospital, Clinic, or Other Facility Administered Medication Ordered Dose Route Frequency Start Date End Date Status albuterol sulfate (PROVENTIL) (2.5 MG/3ML) 0.083% inhalation solution 2.5 mgIndications:History of tobacco use,Cough,SOB (shortness of breath) 2.5 mg NEBULIZER Q4H PRN 08/18/2018 Act yinka documented as of this encounter (statuses as of 06/30/2023) Active Problems Problem Noted Date HTN, goal below 130/80 06/02/2023 Displacement of lumbar intervertebral di sc without myelopathy 11/04/2008 ADVANCE DIRECTIVE INFORMATION 10/15/2008 Overview: Yes, Patient instructed to provide copy of advance directive for provider to review and to be scanned into Electronic Medical Record History of tobacco use 08/26/2008 documented as of this encounter (statuses as of 06/30/2023) Social History Tobacco Use Types Packs/Day Years [...] encounter Miscellaneous Notes * Telephone Encounter - Alisha Morrow PA-C - 06/30/2023 3:31 PM EDTSigned Prescriptions: Disp Refills Losartan Potassium 50 MG Oral Tablet (Coza*90 Tab*3 Sig: Take 1 Tablet by mouth in the morning. Authorizing Provider: ALISHA MORROW hydroCHLOROthiazide 25 MG Oral Tablet (Hyd*90 Tab*3 Sig: Take 1 Tablet by mouth in the morning. Authorizing Provider: ALISHA MORROW * Telephone Encounter - Aleksandra Pryor RN - 06/30/2023 1:12 PM EDTPending Prescriptions: Disp Refills Losartan Potassium 50 MG Oral Tablet (Coza*90 Tab*3 Sig: Take 1 Tablet by mouth in the morning. hydroCHLOROthiazide 25 MG Oral Tablet (Hyd*90 Tab*3 Sig: Take 1 Tablet by mouth in the morning. * Telephone Encounter - Aleksandra Pryor RN - 06/30/2023 1:12 PM EDTPending Prescriptions: Disp Refills Losartan Potassium 50 MG Oral Tablet (Coza*90 Tab*3 Sig: Take 1 Tablet by mouth in the morning. hydroCHLOROthiazide 25 MG Oral Tablet (Hyd*90 Tab*3 Sig: Take 1 Tablet by mouth in the morning. * Telephone Encounter - Sarah Beth Davisnninés Frey - 06/30/2023 12:41 PM EDT Did you pend patient's preferred pharmacy and medication before forwarding?yes Pharmacy: [id number] [id number] [facility] Pending Prescriptions: Disp Refills Losartan Potassium 50 MG Oral Tablet (Coz*30 Tab*5 Sig: Take 1 Tablet by mouth in the morning. hydroCHLOROthiazide 25 MG Oral Tablet (Hy*30 Tab*5 Sig: Take 1 Tablet by mouth in the morning. Last Visit: 05/30/2023 (in office), Visit date not found (telemedicine) Next Visit: 12/22/2023 If no future appointments scheduled, and last appointment is greater than a year ago, please schedule patient for a follow-up appointment Last date the medication was ordered: 06.02.23 Is this request for a controlled substance?No Urine Drug Screen:No results found for this or any previous visit. Patient Phone Numbers Labs: Lab Results Component Value Date/Time CREAT 1.0 05/30/2023 01:25 PM CREAT 0.9 08/18/2018 11:44 AM POTASSIUM 4.3 05/30/2023 01:25 PM POTASSIUM 5.0 08/18/2018 11:44 AM TSH 2.66 05/08/2023 02:42 PM LDLCALC 181 (H) 06/03/2017 08:45 AM LDLDIRECT 158 (H) 05/08/2023 02:42 PM ALT 53 (H) 05/08/2023 02:42 PM HGBA1C 5.9 06/03/2017 08:45 AM documented in this encounter Plan of Treatment Upcoming Encounters Date Type Specialty Care Team Description 07/14/2023 Laboratory Laboratory [place] [address] [place] [phone] 07/14/2023 Nurse Only Ancillary Nurse Elizabeth Tellez [address] [place] [address] AM[place] Danielson [phone] 12/22/2023 Office Visit Family Medicine Alisha Morrow PA-C [address] [place] [address] AMANDA Danielson [phone] 03/10/2024 Office Visit Dermatology Rupa Nieto PA-C [address] [place] [address] AMANDA Danielson [phone] Health Maintenance Due Date Last Done Comments [...] for Pts 12 and Over 05/08/2024 05/08/2023 GFR 05/30/2024 05/30/2023, 07/0 04/2023, [...]
--- OUTSIDE RECORDS SUMMARY | 2023-09-18 12:38 | External Medical Summary ---
Author Name Unknown Address Unknown Organization [id number]:[facility] [place] [address] [facility] [address] Laboratory Report Ordering Provider Test Date Status ODALYS BRITO 05/08/2023 14:42:23 Final Observation Date Value Abnormality Reference (Units ) Status BUN 05/08/2023 14:42:23 13 6-20 (mg/dL) Final Creatinine 05/08/2023 14:42:23 1.0 0.6-1.2 (mg/dL) Final Glomerular filtration rate/1.73 sq M.predicted [Volume Rate/Area] in Serum, Plasma or Blood by Creatinine-based formula (CKD-EPI) 05/08/2023 14:42:23 >90 >=60 (mL/min) Final eGFR is calculated based on the CKD-EPI 2020 equation SODIUM 05/08/2023 14:42:23 139 135-146 (m mol/L) Final Potassium 05/08/2023 14:42:23 4.2 3.5-5.1 (m mol/L) Final Cl 05/08/2023 14:42:23 100 98-107 (mm ol/L) Final CO2 05/08/2023 14:42:23 24 22-32 (mmo l/L) Final Anion gap 05/08/2023 14:42:23 15 7-15 (mmol /L) Final Glucose 05/08/2023 14:42:23 92 70-120 (mg /dL) Final Albumin 05/08/2023 14:42:23 4.5 3.8-5.0 (g /dL) Final AST (Aspartate aminotransferase) 05/08/2023 14:42:23 39 10-50 (U/L) Fin al Alk Phos 05/08/2023 14:42:23 119 35-130 (U/ L) Final Bilirubin, Total 05/08/2023 14:42:23 0.4 <=1 .2 (mg/dL) Final Calcium 05/08/2023 14:42:23 9.4 8.4-10.2 ( mg/dL) Final Protein 05/08/2023 14:42:23 6.5 6.0-8.3 (g /dL) Final ALT (Alanine aminotransferase) 05/08/2023 14:42:23 53 Above high normal 10-50 (U/L) Final Performing Location [facility] [place] [address] [facility] [address]
--- OUTSIDE RECORDS SUMMARY | 2023-09-18 12:38 | External Medical Summary ---
Author Name Unknown Address Unknown Organization K01:[facility] [place] - [address] [facility] [address] Laboratory Report Ordering Provider Test Date Status ODALYS BRITO 05/08/2023 14:42:23 Final Observation Date Value Abnormality Reference (Units ) Status TSH 05/08/2023 14:42:23 2.66 0.27-4.20 (uIU/mL) Final Performing Location [facility] [address] [facility] [address]
== END 2023-09-17 11:02 | disposition home or self-care (01) | DRG 473 ==
LOC: ASU 05:54 → INTOOBSV 09:08 → 3E 09:08